=== PATIENT | male | born 1960 | race Caucasian/White ===

== ENCOUNTER 2020-03-24 10:57 | Outpatient (CLI) | payer OTHER, SELFPAY ==
--- NOTE | ~2020-03-24 | XR_ITS ---
EXAMINATION: XR shoulder LT min 2V INDICATION: Left shoulder pain TECHNIQUE: Four views of the left shoulder are submitted. COMPARISON: CT, 01/12/2019 FINDINGS: There is a chronic fracture of the mid clavicle with inferior displacement of the distal fr acture fragment. The distal fracture fragment is also overriding by approximately 8 mm. Normal alignm ent. No shoulder fracture. There is mild osteoarthritis of the acromioclavicular and glenohumeral al nts. Surgical clips are noted in the left neck. IMPRESSION: 1. No acute osseous abnormality of the shoulder. 2. Chronic displaced and overriding fracture of the left clavicle. Reviewed, dictated and finalized at location A. 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
--- NOTE | ~2020-03-24 | XR_ITS ---
EXAMINATION: XR shoulder RT min 2V DATE: 03/24/2020 11:32 INDICATION: Right shoulder pain. TECHNIQUE: 4 views of right shoulder were obtained. COMPARISON: None. FINDINGS: Bone alignment is normal. No fracture. Glenohumeral joint is normal. There is mild acromioc lavicular joint osteoarthritis. There is surgical clips in left neck. IMPRESSION: 1. Mild right acromioclavicular joint osteoarthritis. Reviewed, dictated and finalized at location A. 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
== END 2020-03-24 10:58 | disposition home or self-care (01) ==
LOC: ANHIMG 11:06
PROVIDERS: PCP Family Medicine; Visit Provider Family Medicine
DX: S42.022A Displaced fracture of shaft of left clavicle, initial encounter for closed fracture (principal); M19.011 Primary osteoarthritis, right shoulder
CPT/HCPCS: 73030

== ENCOUNTER 2020-05-05 10:30 | Outpatient (RCR) | payer OTHER, SELFPAY ==
[2020-04-26 09:23] VITALS: BP_SYST 120
--- NOTE | 2020-04-26 10:40 | PTOPEVAL ---
Thank you for referring Zachery Cameron to [facility] [place].? The patient is scheduled to be seen for therapy? 2 x/week for 6 weeks. Please review, sign, date and return this plan of care ABDON. I agree with and certify that the following plan of care is medically necessary. Referring Physician Date Admitting Provider: Attending Provider: Lawanda Jasmine Physical Therapy Evaluation. Diagnosis left clavicle fracture Onset 2 months Cause falls Additional Evaluation Detail He lives alone, performs IADL's. Pt's sister present during evaluation. She indicates pt's falls are contributed by alcohol. 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 He does not use a walker or cane at home. He is walking when he falls. He reports severe shoulder pain with limited ability to lift/carry objects. He has difficulty with ADL's due to pain. He has difficulty sleeping due to pain. He spends most of his day on the computer. He has increased shoulder pain with prolonged sitting. He performs minimal cooking task. Diagnostic Tests X-Rays For This Problem Yes Pain Assessment Self Report Pain Assessment Left Shoulder(s) Reported Pain Level 9 Pain Description Aching Pain Frequency Continuous Lowest Pain Intensity 9 Greatest Pain Intensity 10 Pain Behaviors Anxious Pain Score Pain Score 9: Self Report Upper Extremity Range of Motion Scapular/ Shoulder Range of Motion Left Shoulder Flexion - Active 80 Shoulder Flexion - Passive 128 Shoulder Extension - Active 60 Shoulder Abduction - Active 70 Shoulder Abduction - Passive 120 Shoulder Medial Rotation - Active 40 Shoulder Medial Rotation - Active L1 Query Text:Reach Behind the Back Shoulder Lateral Rotation - Active 50 Shoulder Lateral Rotation - Active back of head Query Text:Reach Behind the Head Scapular/Shoulder Range of Motion Pain Limitations Upper Extremity Muscle Strength Testing Scapular/Shoulder Left Scapular Retraction - Rhomboid 3- Fair -
--- NOTE | 2020-05-02 11:38 | PCPTNOTE ---
Patient was a no show for apt this date. Called and spoke with sister who stated he was supposed to take the bus as he did not call transportation in time. Sister was made aware of next apt. Therapist Sima Malcolm was relayed no show message as well.
--- NOTE | 2020-05-09 09:52 | PCPTNOTE ---
Patient did not show up for scheduled appointment this date. Called pt's sister who states pt spent 3 days in [facility] following incident at our facility last week. She did think he was coming for therapy today. Called his home number, left message reminding him of his next visit.
--- NOTE | 2020-05-11 09:45 | PCPTNOTE ---
Addendum entered by Jennifer Kamara, BOILER RELINER 05/11/20 12:03: Patient no show for apt this date. Per talking with PT Anjelica Malcolm, patient's apt's are to be cancelled off the schedule. Secretarial staff made aware of this change as well. Called and talked to patient's sister and let her know that all remaining apt's will be cancelled off of the schedule. Original Note: Patient no show for apt this date. Per talking with PT Anjelica Malcolm, patient's apt's are to be cancelled off the schedule. Secretarial staff made aware of this change as well.
--- NOTE | 2020-05-29 10:01 | PCPTNOTE ---
Admitting Provider: Attending Provider: Lawanda Jasmine Patient:Zachery Cameron Date of :1960 Discharge note Patient has not returned for any further treatments since 05/05/2020, therefore he will be discharged at this time. Patient?s initial visit was on 04/26/2020 09:30 and he had a total of 2 visits with 3 missed visits. The goals have been not met. Thank you for referring this patient to [facility]. Please review, sign, date and return this discharge summary ABDON. I have been updated about the patient's current status and I agree with discharge from the above service at this time. Referring Physician Date
== END 2020-05-30 08:11 | disposition home or self-care (01) ==
LOC: ANHPT 10:30
PROVIDERS: PCP Family Medicine
DX: S42.002D Fracture of unspecified part of left clavicle, subsequent encounter for fracture with routine healing (principal); S46.812D Strain of other muscles, fascia and tendons at shoulder and upper arm level, left arm, subsequent encounter
CPT/HCPCS: 97110; 97162

== ENCOUNTER 2020-05-05 10:58 | Emergency (ER) | payer OTHER, SELFPAY ==
[2020-05-05] VITALS (12 sets, daily range): BP systolic 98–137; BP diastolic 61–82; PULSE 63–78; RESP 13–26; TEMP 36.7; O2SAT 95–100
--- NOTE | ~2020-05-05 | CT_ITS ---
EXAMINATION: CT brain wo con DATE: 05/05/2020 11:37 INDICATION: Syncope TECHNIQUE: Computed tomography (CT) of the head was performed without intravenous contrast. Sagittal and coronal reconstructions were performed. The mA was adjusted according to patient size. Iterative reconstruction technique was employed. The dose-length product was 605.33 mGy-cm. COMPARISON: None FINDINGS: No fracture. Extra-axial lenticular hematoma overlying the left frontal lobe which measures approxima tely 7.3 cm AP, 4.8 cm craniocaudally and up to 1.4 cm in maximal thickness. The hematoma appears bárbara nded anteriorly by the scar of the coronal suture and there is thin linear calcification along what i s likely elevated dura and would favor epidural versus subdural hematoma. No other intracranial hemor rhage. The hematoma results in mild mass effect upon the immediately underlying gyri but no midline s hift in the basal cisterns remain patent. Symmetric prominence of the sulci and ventricles consistent with moderate diffuse cerebral volume loss which is disproportionate for age. Small old lacunar infa rct extending from the head of the right caudate nucleus across anterior limb of the internal capsule to the lentiform nucleus. Additional small region of encephalitis along the inferior anterior right frontal lobe which could represent sequela of prior infarct or trauma. No acute infarction. No intra -axial mass. Intracranial calcified cerebral atherosclerosis is noted. The orbits, paranasal sinuses and mastoid air cells are normal. IMPRESSION: 1. 7.3 x 4.8 x 1.4 cm epidural hematoma overlying the left frontal lobe. No associated midline shift which is likely due to the moderate underlying diffuse cerebral volume loss which is disproportionate for age and of indeterminate etiology. Dr. Dove discussed these findings with Dr. Tatum at 11: 40 AM. 2. 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 2. Small region of encephalomalacia along the inferior anterior right frontal lobe which could repres ent sequela of additional old infarct or chronic trauma. Reviewed, dictated and finalized at location A. IMPRESSION: 1. 7.3 x 4.8 x 1.4 cm epidural hematoma overlying the left frontal lobe. No ass ociated midline shift which is likely due to the moderate underlying diffuse ce rebral volume loss which is disproportionate for age and of indeterminate etiol ogy. Dr. Dove discussed these findings with Dr. Tatum at 11:40 AM. 2. Old lacunar infarct involving the head of the right caudate nucleus, anterio r limb of the internal capsule and lentiform nucleus. 2. Small region of encephalomalacia along the inferior anterior right frontal l obe which could represent sequela of additional old infarct or chronic trauma.
--- NOTE | ~2020-05-05 | XR_ITS ---
EXAMINATION: XR chest 1V portable DATE: 05/05/2020 11:56 INDICATION: Syncope post fall TECHNIQUE: frontal view of the chest was obtained. COMPARISON: None FINDINGS: Elevation of the left hemidiaphragm with streaky atelectasis at the left lung base. Additional mild s treak atelectasis at the right costophrenic angle. No other airspace opacities, pulmonary edema, pleu ral effusion or pneumothorax. The cardiomediastinal silhouette is normal. Chronic nonunited mid diaph yseal fracture of the left clavicle with 2 shaft widths cephalad displacement of the medial fragment. Postoperative changes with multiple surgical clips at the left base of the neck. IMPRESSION: 1. Elevation of the left hemidiaphragm with bibasilar atelectasis, left greater than right. Reviewed, dictated and finalized at location A.
--- NOTE | 2020-05-05 11:12 | ECG_ITS ---
Measurements Intervals Donna Rate: 54 P: 66 GA: 135 QRS: 45 QRSD: 93 T: 56 QT: 474 QTc: 453 Interpretive Statements SINUS BRADYCARDIA WITH SINUS ARRHYTHMIA BASELINE ARTIFACT- I, II, AVR, AVL, AVF, V1-V6 BORDERLINE ECG Electronically Signed On 05-05-2020 11:32:18 CDT by Johny Oneil D.O.
--- NOTE | 2020-05-05 11:16 | ED.GENADULT ---
HPI - General Adult General Chief complaint: Syncope Stated complaint: Syncopal Source: RN notes reviewed History of Present Illness HPI narrative: Patient presents to emergency department via EMS for syncopal episode. Patient was at rehab for his shoulder today when he had 2 syncopal episodes. Per EMS the patient had another episode of becoming bradycardic in route with a brief syncopal episode patient currently denies any symptoms he denies any fevers or chills chest pain shortness of breath abdominal pain nausea vomit diarrhea or any other symptoms. He states that he does drink alcohol daily with last drink last night he denies any recent illness Related Data Home Medications Medication Instructions Recorded Confirmed No Home Medications 05/05/20 05/05/20 Allergies Allergy/AdvReac Type Severity Reaction Status Date / Time No Known Allergies Allergy Unverified 02/24/12 13:29 Review of Systems Review of Systems: Narrative: Gen.: Denies fevers or chills Eyes: Denies eye pain or visual change ENT: Denies congestion Respiratory: Denies shortness of breath or cough CV: See HPI GI: Denies abdominal pain nausea, emesis or diarrhea Musculoskeletal: Denies back pain or muscle pain Neuro: Denies numbness, tingling, weakness or focal weakness Skin: Denies rash Except as documented, all other systems reviewed and negative [facility] Past Medical History Medical History (Updated 05/05/20 @ 12:43 by Jorge Tatum DO) Patient denies significant medical history Social History Social History (Updated 05/05/20 @ 11:21 by Jorge Tatum DO) Smoking status: Current every day smoker Alcohol intake: current Exam Narrative: Exam Narrative: APPEARANCE: No acute distress, nontoxic, resting in bed EYES: EOMI HEENT: Normocephalic, atraumatic, OMM RESPIRATORY: No respiratory distress Clear to auscultation bilaterally with no rhonchi wheezing or rales. CARDIOVASCULAR: Regular rate and rhythm without murmurs rubs or gallops. ABDOMINAL: Soft, nontender, nondistended, no rebound or guarding MUSCULOSKELETAl: Moves all extremities. No clubbing, cyanosis or edema. NEURO: Awake and alert x 4. Following commands, speech normal, no focal deficits SKIN:: Warm, dry. No rashes lesions or abrasions PSYCHIATRIC: Normal affect/mood, Course Course Emergency Course: Patient is awake and alert x4 he states that he is a DNR does not wish any resuscitative efforts if needed Patient did have a brief episode of bradycardia down into the 30s in the ED in which she went unresponsive approximately 30 seconds and resolved on its own As the patient, she drinks he states that he drinks as much as he can on a daily basis until he passes out I asked the patient about any recent falls and he states he falls all the time Discussed with patient need for transfer request [facility] at this time Discussed with MARY KAY Chand for neurosurgery presentation work-up recommends transfer to the ED. I discussed with in the ED who accepts transfer Patient is remained on nuclear monitoring technician no further episodes of bradycardia or syncope in ED Vital Signs Vital signs: Vital Signs Temperature 98.0 F 05/05/20 11:03 Pulse Rate 69 05/05/20 11:03 Respiratory Rate 18 05/05/20 11:03 Blood Pressure 98/69 L 05/05/20 11:03 Pulse Oximetry 100 05/05/20 11:03 Temperature 98.0 F 05/05/20 11:03 Pulse Rate 76 05/05/20 12:16 Respiratory Rate 19 05/05/20 12:16 Blood Pressure 117/61 05/05/20 12:16 Pulse Oximetry 97 05/05/20 11:46 Medical Decision Making Vital Signs Vital Signs: Vital Signs Temperature 98.0 F 05/05/20 11:03 Pulse Rate 69 05/05/20 11:03 Respiratory Rate 18 05/05/20 11:03 Blood Pressure 98/69 L 05/05/20 11:03 Pulse Oximetry 100 05/05/20 11:03 Temperature 98.0 F 05/05/20 11:03 Pulse Rate 76 05/05/20 12:16 Respiratory Rate 19 05/05/20 12:16 Blood Pressure 117/61 05/05/20 12:16 Pulse Ox
[2020-05-05] MEDS: SODIUM CHLORIDE 0.9% IV 1,000 ML 999 ML IV CONT (11:24)
[2020-05-05 11:34] LABS: Basophils Absolute Auto 0.1 K/mm3 (0.0-0.1); Basophils Percent Auto 1.1 % (0.2-1.2); Eosinophils Absolute Auto 0.1 K/mm3 (0-0.3); Eosinophils Percent Auto 1.7 % (0-4.4); Hematocrit 40.9 % (42.0-52.0); Hemoglobin 14.4 g/dL (14.0-18.0); Immature Granulocyte Absolute 0.08 K/mm3 (0.00-0.031); Immature Granulocyte Percent A 1.1 % (0-0.5); Lymphocytes Absolute Auto 2.35 K/mm3 (0.9-3.2); Lymphocytes Percent Auto 32.4 % (18.3-44.2); Mean Corpuscular HGB Conc 35.2 g/dl (32-36); Mean Corpuscular Hemoglobin 34.2 pg (26-34); Mean Corpuscular Volume 97.1 fl (80-100); Monocytes Absolute Auto 1.1 K/mm3 (0.1-0.6); Neutrophils Absolute Auto 3.5 K/mm3 (1.3-6.7); Neutrophils Percent Auto 48.7 % (45.5-73.1); Platelet Count Result 173 k/mm3 (150-375); Red Blood Count 4.21 M/mm3 (4.6-6.20); Red Cell Distribution Width 12.3 % (11.5-14.5); White Blood Count 7.3 K/mm3 (4.5-10.0)
[2020-05-05 11:46] LABS: INR 0.9; Prothrombin Time 13.1 Seconds (11.1-14.7)
[2020-05-05 11:47] LABS: Partial Thromboplastin Time 28.2 SECONDS (22.3-36.8)
[2020-05-05 11:48] LABS: Ethanol 132 mg/dL (<10); Lipase 126 U/L (23-300)
[2020-05-05 11:49] LABS: Alanine Aminotransferase 46 U/L (4-50); Albumin Level 3.8 g/dL (3.5-5.1); Alkaline Phosphatase 51 U/L (38-126); Anion Gap 8 mmol/L (8-16); Aspartate Amino Transferase 57 U/L (17-59); Bilirubin,Total 0.3 mg/dL (0.2-1.3); Blood Urea Nitrogen 11 mg/dL (9-20); Calcium 9.2 mg/dL (8.4-10.2); Carbon Dioxide 27 mmol/L (22-30); Chloride 101 mmol/L (98-107); Estimated CRCL calculation 62 ml/min; Estimated Glomerular Filt Rate > 60; Glucose 92 mg/dL (75-110); Magnesium 1.6 mg/dL (1.6-2.3); Potassium 3.6 mmol/L (3.4-5.0); Sodium 136 mmol/L (137-145)
[2020-05-05 12:01] LABS: Troponin I < 0.012 ng/mL (0.000-0.034)
== END 2020-05-05 13:02 | disposition short-term general hospital (02) ==
PROVIDERS: Emergency Provider Emergency Medicine; PCP Family Medicine
DX: S06.4X9A Epidural hemorrhage with loss of consciousness of unspecified duration, initial encounter (principal); R55 Syncope and collapse; F10.129 Alcohol abuse with intoxication, unspecified; Y90.6 Blood alcohol level of 120-199 mg/100 ml; F17.200 Nicotine dependence, unspecified, uncomplicated; R91.8 Other nonspecific abnormal finding of lung field; R00.1 Bradycardia, unspecified; Z66 Do not resuscitate; W18.39XA Other fall on same level, initial encounter
CPT/HCPCS: 36415; 70450; 71045; 80053; 80307; 83690; 83735; 84484; 85025; 85610; 85730; 93005; 96360; 97110; 99285; J7030

== ENCOUNTER 2020-05-23 14:08 | Observation (INO) | payer OTHER, SELFPAY ==
[2020-05-23] VITALS (11 sets, daily range): BP systolic 79–160; BP diastolic 56–99; PULSE 52–93; RESP 15–25; TEMP 36.2–37.1; O2SAT 98–100; BMI 22.3
--- NOTE | ~2020-05-23 | XR_ITS ---
EXAMINATION: XR chest 2V EXAM DATE: 05/23/2020 14:57 INDICATION: Syncope, back pain. Recent left clavicular fracture. TECHNIQUE: Frontal and lateral projections of the chest obtained and reviewed. Comparison is made to prior examination from 05/05/2020. Correlation was made with left shoulder x-ray 03/24/2020. FINDINGS: Completely inferiorly displaced left midclavicular fracture. No solid bone bridging; this i s at risk for nonunion. Left hemidiaphragm elevation, possible paralysis. This is unchanged compared to prior study. There is some adjacent atelectasis. The lungs are otherwise clear. Cardiomediastinal silhouette is normal. There is no pneumothorax suspected. There are no pleural effusions. IMPRESSION: 1. Left midclavicular fracture with inferior displacement, at risk for nonunion. 2. Left hemidiaphragm elevation, possible paralysis. Could be diagnosed with a follow-up nonemergen t sniff test if patient is symptomatic. Reviewed, dictated and finalized at location A. IMPRESSION: 1. Left midclavicular fracture with inferior displacement, at risk for nonunio n. 2. Left hemidiaphragm elevation, possible paralysis. Could be diagnosed with a follow-up nonemergent sniff test if patient is symptomatic.
--- NOTE | ~2020-05-23 | CT_ITS ---
EXAMINATION: CT brain wo con DATE: 05/23/2020 15:45 INDICATION: Syncope. TECHNIQUE: Computed tomography (CT) of the head was performed without intravenous contrast. The mA wa s adjusted according to patient size. Iterative reconstruction technique was employed. The dose-lengt h product was 681.00 mGy-cm. COMPARISON: Head CT 05/05/2020 FINDINGS: There is old infarct involving the right basal ganglia and anterior limb right internal cap omar. There is a hyperdense extra-axial fluid collection overlying the left frontoparietal region wit h maximum thickness of 15 mm. There is chronic encephalomalacia in inferior right frontal lobe. There is no acute ischemic infarct or abnormal mass lesion. There are scattered areas of low attenuation i n the cerebral white matter, which is within normal limits for the patient's age. The ventricles are normal in size. There is mild mucosal thickening in the paranasal sinuses. The mastoid air cells are normal. IMPRESSION: 1. Unchanged extra-axial hematoma overlying left frontoparietal region with maximum thickness of 15 m m, which may be epidural or subdural. 2. 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 3. Chronic encephalomalacia involving inferior right frontal lobe, which may be an old infarct or res ult of traumatic brain injury. Reviewed, dictated and finalized at location A. IMPRESSION: 1. Unchanged extra-axial hematoma overlying left frontoparietal region with max imum thickness of 15 mm, which may be epidural or subdural. 2. 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 3. Chronic encephalomalacia involving inferior right frontal lobe, which may be an old infarct or result of traumatic brain injury.
--- NOTE | ~2020-05-23 | US_ITS ---
EXAMINATION: US carotid duplex BI EXAM DATE: 05/24/2020 08:28 INDICATION: Syncope. TECHNIQUE: Grayscale, color and pulsed Doppler images of the cervical carotid arteries were obtained . The degree of vessel stenosis is placed in one of the following categories: normal, <50% stenosis, 50-69% stenosis, >=70% stenosis but less than near-occlusion, near-occlusion, or occlusion. Note that percent stenosis relative to normal distal artery lumen diameter is indirectly measured from velocit y measurements as described by Aston, et al. Radiology 2003; 229:340-346. There is no prior study fo r comparison. FINDINGS: RIGHT SIDE: Right common carotid artery peak systolic velocity (PSV in cm/s): 66 Right bulb/internal carotid artery peak systolic velocity (PSV in cm/s): 44 Right internal carotid artery end diastolic velocity (EDV in cm/s): 12 Right ICA/CCA peak systolic ratio: 0.7 Right external carotid artery peak systolic velocity (PSV in cm/s): 139 Right vertebral artery antegrade flow: yes There is mild carotid bulb plaque. Velocity and Doppler waveforms in the common and internal carotid arteries is normal. LEFT SIDE: Left common carotid artery peak systolic velocity (PSV in cm/s): 91 Left bulb/internal carotid artery peak systolic velocity (PSV in cm/s): 53 Left internal carotid artery end diastolic velocity (EDV in cm/s): 12 Left ICA/CCA peak systolic ratio: 0.6 Left external carotid artery peak systolic velocity (PSV in cm/s): 135 Left vertebral artery antegrade flow: yes There is mild carotid bulb plaque. Velocity and Doppler waveforms in the common and internal carotid arteries is normal. IMPRESSION: 1. Less than 50 percent stenosis in the right internal carotid artery. 2. Less than 50 percent stenosis in the left internal carotid artery. Reviewed, dictated and finalized at location A.
--- NOTE | 2020-05-23 14:26 | ECG_ITS ---
Measurements Intervals [place] Rate: 84 P: 55 LA: 112 QRS: 50 QRSD: 88 T: 64 QT: 385 QTc: 456 Interpretive Statements SINUS RHYTHM WITH SHORT LA INTERVAL BORDERLINE ECG Electronically Signed On 05-24-2020 8:22:43 CDT by Johny Oneil D.O.
--- NOTE | 2020-05-23 15:05 | ED.SYNCOPE ---
HPI - Syncope General Chief Complaint: Syncope Stated Complaint: syncopal Time Seen by Provider: 05/23/20 14:14 History of Present Illness HPI narrative: Patient is a 59-year-old male who presents ER with near syncope. Reports he is going to the store to get some bread and some eggs and he got really lightheaded and things started to go black. He had to go down onto 1 knee. He did not have full loss of consciousness. Denies having this happen to him before. Patient has a bunch of other vague symptoms such as chest pain and fevers that he cannot give details to in terms of quality, frequency, or when the symptoms actually occurred. Related Data Home Medications Medication Instructions Recorded Confirmed ergocalciferol (vitamin D2) 50,000 unit PO WEEKLY 05/23/20 05/23/20 folic acid 1 mg PO DAILY 05/23/20 05/23/20 Allergies Allergy/AdvReac Type Severity Reaction Status Date / Time No Known Allergies Allergy Unverified 02/24/12 13:29 Review of Systems Review of Systems: All systems reviewed & are unremarkable except as noted in HPI and below Constitutional: Constitutional: Denies chills, Reports fever(s) and Denies weakness ENT: Denies nasal congestion and Denies sore throat Cardiovascular: Cardiovascular: Reports chest pain, Denies rapid heart rate and Denies radiating jaw, neck or arm pain Respiratory: Respiratory: Denies cough, Denies dyspnea and Denies wheezing Gastrointestinal: Gastrointestinal: Denies abdominal pain, Denies diarrhea, Denies nausea and Denies vomiting Neurologic: Denies confusion, Reports dizziness, Reports syncope (near), Denies focal weakness and Denies numbness PMFSH Past Medical History Medical History (Updated 05/23/20 @ 21:23 by Earl Roberson MD) Patient denies significant medical history Social History Social History (Updated 05/05/20 @ 11:21 by Jorge Tatum DO) Smoking packs per day: 0.5 Smoking cigarettes per day: 10.0 Smoking status: Current every day smoker Tobacco type: cigarettes Second hand tobacco smoke exposure: Yes Alcohol intake: current Drinks per week: 84 Substance use: unknown Spiritual care concerns: No Exam Narrative: Exam Narrative: GENERAL: Unkempt-appearing, well-nourished, and in no acute distress. HEAD: Normocephalic, atraumatic. EYES: PERRL and EOMI. ENT: Mucous membranes moist. CHEST: Clear to auscultation. No respiratory distress. HEART: Regular rate and rhythm. Normal peripheral pulses. ABDOMEN: Soft, nontender, nondistended EXTREMITIES: Normal range of motion. No edema. SKIN: Warm, dry, no rash. NEURO: Alert and oriented x3. Course Reevaluation(s) Reevaluation #1: Discussed with patient the fact that is here couple weeks ago with a epidural hematoma and transferred to [facility] for similar symptoms. Reports he required no intervention at that time and was low at home. He does not seem to know much else about his stay there. He reports no I talked to him about possible need for pacemaker. Date: 05/23/20 Time: 16:25 Reevaluation #2: Discussed with Dr. Gonzales who would recommend admission for observation. Date: 05/23/20 Time: 17:13 Vital Signs Vital signs: Vital Signs Temperature 98.8 F 05/23/20 14:10 Pulse Rate 90 05/23/20 14:10 Respiratory Rate 25 H 05/23/20 14:10 Blood Pressure 79/56 L 05/23/20 14:10 Pulse Oximetry 100 05/23/20 14:10 Temperature 97.8 F 05/23/20 20:00 Pulse Rate 83 05/23/20 20:22 Respiratory Rate 18 05/23/20 20:01 Blood Pressure 160/92 H 05/23/20 20:01 Pulse Oximetry 98 05/23/20 20:01 MDM - Syncope Lab Data Result diagrams: 05/23/20 15:23 05/23/20 15:23 Labs: Lab Results 05/23/20 05/23/20 05/23/20 Range/Units 15:23 15:23 15:23 WBC 6.1 (4.5-10.0) K/mm3 RBC 4.57 L (4.6-6.20) M/mm3 Hgb 15.5 (14.0-18.0) g/dL Hct 44.1 (42.0-52.0) % MCV 96.5 (80-100) fl MCH 33.9 (26-34) p
[2020-05-23 15:38] LABS: Basophils Percent Auto 0.7 % (0.2-1.2); Eosinophils Absolute Auto 0.1 K/mm3 (0-0.3); Eosinophils Percent Auto 0.8 % (0-4.4); Hematocrit 44.1 % (42.0-52.0); Hemoglobin 15.5 g/dL (14.0-18.0); Immature Granulocyte Absolute 0.03 K/mm3 (0.00-0.031); Immature Granulocyte Percent A 0.5 % (0-0.5); Lymphocytes Absolute Auto 0.89 K/mm3 (0.9-3.2); Lymphocytes Percent Auto 14.5 % (18.3-44.2); Mean Corpuscular HGB Conc 35.1 g/dl (32-36); Mean Corpuscular Hemoglobin 33.9 pg (26-34); Mean Corpuscular Volume 96.5 fl (80-100); Mean Platelet Volume 11.5 fl (7.4-10.4); Monocytes Absolute Auto 0.6 K/mm3 (0.1-0.6); Monocytes Percent Auto 9.8 % (2.6-8.5); Neutrophils Absolute Auto 4.5 K/mm3 (1.3-6.7); Neutrophils Percent Auto 73.7 % (45.5-73.1); Platelet Count Result 112 k/mm3 (150-375); Red Blood Count 4.57 M/mm3 (4.6-6.20); Red Cell Distribution Width 12.3 % (11.5-14.5); White Blood Count 6.1 K/mm3 (4.5-10.0)
[2020-05-23 15:44] LABS: Lactic Acid Reflex 1.7 mmol/L (0.7-2.1)
[2020-05-23 15:48] LABS: Anion Gap 5 mmol/L (8-16); Blood Urea Nitrogen 14 mg/dL (9-20); Calcium 7.7 mg/dL (8.4-10.2); Carbon Dioxide 27 mmol/L (22-30); Chloride 104 mmol/L (98-107); Estimated Glomerular Filt Rate > 60; Glucose 97 mg/dL (75-110); Potassium 3.5 mmol/L (3.4-5.0); Sodium 136 mmol/L (137-145)
[2020-05-23 15:58] LABS: Troponin I < 0.012 ng/mL (0.000-0.034)
--- NOTE | 2020-05-23 16:37 | PC.NURSE ---
md bullock states hold iv fluids at this time.
[2020-05-23 17:15] LABS: Ethanol < 10 mg/dL (<10)
[2020-05-23 17:16] LABS: Partial Thromboplastin Time 26.7 SECONDS (22.3-36.8); Prothrombin Time 13.4 Seconds (11.1-14.7)
--- NOTE | 2020-05-23 17:47 | PC.NURSE ---
called suleman mcdowell, added on MG [id number]
--- NOTE | 2020-05-23 17:52 | PC.NURSE ---
sister taran called per pt request. sister informed of pt status in ed
[2020-05-23 17:58] LABS: Magnesium 1.7 mg/dL (1.6-2.3)
--- NOTE | 2020-05-23 20:35 | ADMGEN ---
This patient, Zachery Cameron, was admitted to [facility]. Patient/family oriented to hospital policies and general routines including ID bracelet, bed and alarms, visiting hours, pain management, procedures, bathroom and other care routines, personal items, smoking policy, room service/diet, and visiting hours. Information on how to activate the Rapid Response Team has been discussed. Patient/Family are encouraged to report perceived risks to care and to ask questions if they do not understand what they are told or what they should do.
--- NOTE | 2020-05-23 21:53 | PM.IMHP ---
H&P: HPI History of Present Illness Date/Time: 05/23/20 21:53 male patient who reportedly had a syncopal episode on 05/05/2020. However the patient told me that it was due to mechanical fall. He stated he had been drinking at that time. The patient was at rehab for his shoulder when he had 2 up syncopal episode. Patient became bradycardic EN route for brief episode. The patient had a brief episode of bradycardia down in the 30s and the patient went unresponsive for about 30 seconds and then resolved on its own. It was suggested that the patient be transferred to u at that time due to a head CT that was read as 7.3 x 4.8 x 1.4 cm epidural hematoma overlying the left frontal lobe. No so stated midline shift. The patient stated that he had been on seizure medicine shortly after this episode but no longer takes any seizure medicine. The patient stated he was supposed to follow-up and have a repeat head CT in the near future. Today the patient walk approximately 4 blocks to a small grocery store fresh market to get some Pred and some headaches. The patient had not eaten all morning. The patient stated that he typically after walking 4 blocks he usually takes a break and sits down for minute. However she stated that he did not take her break today and that he became short of breath and felt dizzy and he leans his head on the counter he stated that things started to go black and he went down on 1 knee. He did not lose consciousness. Patient also had some mild chest discomfort during this. Had no fever chills. Patient is a chronic alcoholic drinker him drinks about a 12 pack a day. Patient drink earlier this morning. The patient does not have any hand tremors at this time. The patient stated that he is a DNR. He was listed as a DNR on his last visit as well. Cardiology has been consulted for symptomatic bradycardia and old infarction was noted as well. The patient was supposed to follow-up for a repeat head CT since his release from u. The patient has not been having any focal weakness or slurred speech. Patient does not have any complaints of chest pain or shortness of breath at this time. The patient is being admitted to observation on the date of service of 05/23/2020 Chief Complaint: Syncopal episode with bradycardia Review of Systems Review of Systems: All systems reviewed & are unremarkable except as noted in HPI and below Constitutional: Constitutional: Reports as per HPI and Reports no additional constitutional complaints Eyes: Eyes: Reports as per HPI and Reports no additional eye complaints ENT: Reports system reviewed and no additional complaints, except as documented and Reports Normal hearing present Cardiovascular: Cardiovascular: Reports no additional cardiovascular complaints Respiratory: Respiratory: Reports no additional respiratory complaints and Reports no additional respiratory complaints Gastrointestinal: Gastrointestinal: Reports as per HPI and Reports no additional gastrointestinal complaints Musculoskeletal: Musculoskeletal: Reports no additional musculoskeletal complaints Integumentary/Breasts: Skin/Breast: Reports system reviewed and no additional complaints, except as docu and Reports as per HPI Neurologic: Reports system reviewed and no additional complaints, except as documented, Reports as per HPI and Reports Normal hearing present Psychiatric: Psychiatric: Reports no additional psychiatric complaints and Reports as per HPI Endocrine: Endocrine: Reports no additional endocrine complaints Hematologic/Lymphatic: Hematologic/Lymphatic: Reports no additional hematologic/lymphatic complaints Allergic/Immunologic: Allergic/Immunologic: Reports no additional allergic/immunologic complaints [facility] Past Medical History Medical History (Updated 05/23/20 @ 22:05 by Karla Cook NP) Alcoholism Patient denies significant medical history Tobacco abuse Surgical History Surgical History (Updated 05/23/20
[2020-05-23] MEDS: chlordiazePOXIDE (*CRX) 25 MG CAPSULE PO (22:21)
[2020-05-24] VITALS (11 sets, daily range): BP systolic 112–169; BP diastolic 75–95; PULSE 61–90; RESP 16–20; TEMP 35.8–36.6; O2SAT 98–100
--- NOTE | 2020-05-24 | ECHO_ITS ---
Patient Info Name: Zachery Cameron Age: 59 years : 1960 Gender: Male Ht: 67 in Wt: 142 lbs BSA: 1.75 m2 HR: 81 bpm BP: 169 / 95 mmHg Heart Rhythm: Sinus Rhythm Exam Date: 05/24/2020 9:26 AM Exam Location: [facility] Patient Status: Outpatient Admit Date: 05/23/2020 Staff Ordering Physician: Karla Cook NP Special Tester: Andrew De León RDCS, RT Attending Provider: Arin Salas PA-C Referring Physician: Joyce WHEAT; Exam Type: CA echo doppler color flow Study Info Indications R55 - Syncope and collapse Complete two-dimensional, color flow and Doppler transthoracic echocardiogram is performed. Strain analysis performed. Summary 1. Complete two-dimensional, color flow and Doppler transthoracic echocardiogram is performed. 2. Left ventricular chamber size, wall thickness and systolic function are normal with no regional wall motion abnormalities with an estimated ejection fraction of 55-60 %. Grade 2 diastolic dysfunction is present. The global longitudinal strain is mildly diminished at -16% consistent with a degree of systolic dysfunction. 3. Right ventricular chamber dimension is mildly enlarged with normal systolic function. 4. No significant valve disease. 5. Normal sinus rhythm. Left Ventricle Left ventricular chamber dimension is normal. Left ventricular systolic function is normal, estimated at 55-60%. There is no increased left ventricular wall thickness. Left ventricular septal wall motion is normal. The left ventricular diastolic function is grade II diastolic dysfunction. Global longitudinal strain is mildly elevated at -16 %. Left ventricular chamber size, wall thickness and systolic function are normal with no regional wall motion abnormalities with an estimated ejection fraction of 55-60 %. Grade 2 diastolic dysfunction is present. The global longitudinal strain is mildly diminished at -16% consistent with a degree of systolic dysfunction. Right Ventricle Right ventricular chamber dimension is mildly enlarged with normal systolic function. Right ventricular systolic function is normal. Left Atria Left atrial chamber dimension is normal. Right Atria Right atrial chamber dimension is normal. Aortic Valve The aortic valve is trileaflet. There is mild aortic valve sclerosis. There is no aortic valve stenosis. There is no aortic valve regurgitation. Pulmonic Valve The pulmonic valve is normal. There is no pulmonic valve stenosis. There is no pulmonic regurgitation. Mitral Valve The mitral valve has normal leaflets. There is no mitral valve stenosis. There is no mitral valve regurgitation. Tricuspid Valve The tricuspid valve leaflets are normal. There is no significant tricuspid valve stenosis. There is trace tricuspid valve regurgitation. No pulmonary hypertension, estimated pulmonary arterial systolic pressure is Empty. Pericardium/Pleural The pericardium appears normal. There is no pericardial effusion. Inferior Vena Cava Normal inferior vena cava with >50% collapse upon inspiration consistent with Empty right atrial pressure, 5 mmHg. Aorta The aortic root size at the sinus of Valsalva is normal. The prox ascending aorta size is normal. Left Ventricular Outflow Tract Name Value Normal LVOT 2D --
[2020-05-24 05:45] LABS: Basophils Absolute Auto 0.1 K/mm3 (0.0-0.1); Basophils Percent Auto 1.1 % (0.2-1.2); Eosinophils Absolute Auto 0.1 K/mm3 (0-0.3); Eosinophils Percent Auto 1.9 % (0-4.4); Hematocrit 44.7 % (42.0-52.0); Hemoglobin 15.7 g/dL (14.0-18.0); Immature Granulocyte Absolute 0.02 K/mm3 (0.00-0.031); Immature Granulocyte Percent A 0.4 % (0-0.5); Lymphocytes Absolute Auto 1.49 K/mm3 (0.9-3.2); Lymphocytes Percent Auto 26.1 % (18.3-44.2); Mean Corpuscular HGB Conc 35.1 g/dl (32-36); Mean Corpuscular Volume 96.8 fl (80-100); Mean Platelet Volume 10.6 fl (7.4-10.4); Monocytes Absolute Auto 0.7 K/mm3 (0.1-0.6); Monocytes Percent Auto 11.7 % (2.6-8.5); Neutrophils Absolute Auto 3.4 K/mm3 (1.3-6.7); Neutrophils Percent Auto 58.8 % (45.5-73.1); Platelet Count Result 112 k/mm3 (150-375); Red Blood Count 4.62 M/mm3 (4.6-6.20); Red Cell Distribution Width 12.1 % (11.5-14.5); White Blood Count 5.7 K/mm3 (4.5-10.0)
[2020-05-24] MEDS: chlordiazePOXIDE (*CRX) 25 MG CAPSULE PO ×2 (05:49→17:36)
[2020-05-24] MEDS: HYDROcodone/acetaminophen (*CRX) 5-325 MG TABLET 1 TAB PO (05:49)
[2020-05-24 05:52] LABS: Alanine Aminotransferase 22 U/L (4-50); Albumin Level 3.8 g/dL (3.5-5.1); Alkaline Phosphatase 53 U/L (38-126); Anion Gap 5 mmol/L (8-16); Aspartate Amino Transferase 32 U/L (17-59); Bilirubin,Total 0.7 mg/dL (0.2-1.3); Blood Urea Nitrogen 14 mg/dL (9-20); Calcium 9.3 mg/dL (8.4-10.2); Carbon Dioxide 28 mmol/L (22-30); Chloride 103 mmol/L (98-107); Estimated CRCL calculation 87 ml/min; Estimated Glomerular Filt Rate > 60; Glucose 98 mg/dL (75-110); Lactate Dehydrogenase 314 U/L (313-618); Lipase 47 U/L (23-300); Magnesium 1.6 mg/dL (1.6-2.3); Potassium 3.7 mmol/L (3.4-5.0); Sodium 136 mmol/L (137-145)
--- NOTE | 2020-05-24 08:10 | PC.NURSE ---
DOWN VIA STRETCHER FOR US OF CAROTIDS.
--- NOTE | 2020-05-24 08:40 | PC.NURSE ---
RETURNS TO ROOM LIBRARY ASSOCIATE 5 FROM US CAROTIDS. OT HERE TO SEE PT.
--- NOTE | 2020-05-24 09:20 | PC.NURSE ---
ECHO IN PROGRESS AT BEDSIDE.
--- NOTE | 2020-05-24 10:34 | PM.CNCAR ---
Assessment and Plan Assessment and plan (1) Syncope: Code(s): R55 - Syncope and collapse Status: Acute Assessment and Plan: Patient has had recurrent falls, syncope and near-syncope which can be from several etiologies. He has intermittent bradycardia. He was also somewhat hypotensive when he was in the ER briefly. This may be due to his alcohol abuse as well. Seizures are unlikely, though he also has had some head injuries. I explained to Mr. Cameron that if we could do further monitoring to see if he is having extremely slow heartbeats and if they correlate with his falls and blackouts. A pacemaker would be helpful if he has symptomatic bradycardia in preventing further falls or blackouts and subsequent injuries. He is not sure that he wants to proceed with long-term home monitoring, and not sure if he would want to have a pacemaker put in. (An implanted loop recorder is an option, but a monitor is prefered.) (2) Bradycardia: Code(s): R00.1 - Bradycardia, unspecified Status: Acute Assessment and Plan: Intermittent bradycardia noted. None since he has been in the [facility]. (3) Alcoholism: Code(s): F10.20 - Alcohol dependence, uncomplicated Status: Chronic Assessment and Plan: Long history of heavy alcohol abuse Trouble with compliance and follow-up. Sister Sherita hopes he will go into assisted living. (4) Tobacco abuse: Code(s): Z72.0 - Tobacco use Status: Chronic Assessment and Plan: Ongoing smoking with a history of tonsillar cancer; did not follow-up for his radiation and chemotherapy but no obvious recurrence this admission. History of Present Illness History of Present Illness Consult date/time: 05/24/20 10:34 Requesting physician: Karla Cook NP Consult reason: Other (Syncope) Reason For Visit: syncope, bradycardia Narrative: Date of service: 05/24/2020 Zachery Cameron this 59-year-old male I was asked to see at the request of hospitalist for my advice and opinion regarding syncope, bradycardia and chest discomfort in consultation. Apparently a couple of brief syncopal episodes on 05/05/2020 his heart rate dropped into the 30s when he was in the ED for about 30 seconds and was unresponsive. For large epidural hematoma of the right frontal lobe and he was transferred in outside hospital. He was treated and discharged with outpatient follow-up scheduled for the hematoma with a repeat CT scan. Yesterday while buying groceries the patient got lightheaded and thing started to go black, and he sank to 1 knee. Apparently there was not full loss of consciousness, but that is not completely clear. When EMS arrived his pulse is 42 and blood pressure 102/68.. He has some other vague complaints the right chest (tender). He has had some TREJO as well.. In the emergency room blood pressure was initially 79/56 and pulse 90, but Heart rate was noted to be in the 50s at times. He was admitted to the chest Pain Center for evaluation. He has had no further bradycardia or hypotension, no orthostasis, and negative troponins. The patient has history of severe alcoholism. History obtained from his sister Bindu, who said that even though he does not appear able to take care of himself very well, she does not want min her house because he is ?always drunk.? He has a long history of frequent falls. Patient says he falls and he has blackouts, can't tell me much history about this, if there is a prodrome etc. Bindu is hoping that he may go to assisted living since she does not feel comfortable with him living alone. Review of Systems Constitutional: Constitutional: Reports fatigue, Reports lethargy and Reports weakness Eyes: Eyes: Reports no additional eye complaints ENT: Denies epistaxis Cardiovascular: Ca
[2020-05-24] MEDS: FOLIC ACID 1 MG TABLET PO (10:36)
[2020-05-24] MEDS: NICOTINE (*PBKC) 14 MG PATCH 1 PATCH TRANSDERM (10:37)
[2020-05-24] MEDS: MAGNESIUM OXIDE 400 MG TABLET PO (10:37)
[2020-05-24] MEDS: THIAMINE HCL 100 MG TABLET PO (10:37)
--- NOTE | 2020-05-24 10:55 | PC.NURSE ---
DR. AYALA HERE TO SEE PT AT BEDSIDE.
--- NOTE | 2020-05-24 11:30 | PC.NURSE ---
DR. REYES NOTIFIED OF CONSULT FOR FX L. CLAVICLE.
--- NOTE | 2020-05-24 11:45 | PC.NURSE ---
BUSINESS SERVICES ADMINISTRATOR, RASHEEDA TRAYLOR, HERE TO SEE PT FOR DISCHARGE NEEDS.
--- NOTE | 2020-05-24 12:00 | PC.NURSE ---
PT'S SISTER, MARCELA, HERE TO SEE PT. CONDITION UPDATE GIVEN. SPOKE TO DR. AYALA RE: PLAN FOR HEART.
--- NOTE | 2020-05-24 12:30 | PC.NURSE ---
FRONT DESK AGENT HERE TO MEET W/ PT'S SISTER AND PT. ABOUT DISCHARGE PLANNING.
--- NOTE | 2020-05-24 13:09 | PC.NURSE ---
REILLY Gao PA HERE TO SEE PT AND HIS SISTER AT BEDSIDE.
--- NOTE | 2020-05-24 15:11 | PM.IMPN ---
Progress Note: A&P Assessment and Plan (1) Syncope: Code(s): R55 - Syncope and collapse Status: Acute Assessment and Plan: Unclear etiology at this time -not orthostatic or hypotensive -echo does not show any etiology -telemetry with no alarm reviews -could be due to alcohol or undiagnosed cardiac arrhythmia -cardiology on board and recommend Holter monitor outpatient -family at bedside understands the patient is at risk if he continues to drink but the patient is not willing to quit at this time -he has a history of pretty recent epidural hematoma that [facility]. He has no neurological deficits at this time (2) Bradycardia: Code(s): R00.1 - Bradycardia, unspecified Status: Acute Assessment and Plan: Monitor on telemetry overnight -Holter monitor before discharge tomorrow (3) Tobacco abuse: Code(s): Z72.0 - Tobacco use Status: Chronic Assessment and Plan: Patient understands that he needs to quit smoking but does not have any plans to do so (4) Alcoholism: Code(s): F10.20 - Alcohol dependence, uncomplicated Status: Chronic Assessment and Plan: Last ciwa 6 but no physical symptoms on my exam -Continue librium but lower the dose -Continue with monitoring with CIWA scores. -Pt is on folic acid, mag and thiamin. -The patient has thrombocytopenia most likely due to his alcoholism. (5) Subdural hematoma: Code(s): S06.5X9A - Traumatic subdural hemorrhage with loss of consciousness of unspecified duration, initial encounter Status: Acute Assessment and Plan: seen at [facility] for this -unchanged, no neurological deficits -Monitor -Avoid chemical DVT prophylaxis (6) Hemidiaphragm paralysis: Code(s): J98.6 - Disorders of diaphragm Status: Acute Assessment and Plan: No acute SOB at this time -Will need outpt sniff test Time Spent With Patient Time with patient: 25 - 35 minutes Subjective Date/time seen: 05/24/20 15:11 Interval history: Pt is a 59-year-old male here for syncope. Patient was seen today with sister at bedside and we had a long discussion. He states he has not had any further syncope since it happened at the grocery store outpatient. He recalls that moment and just says he was leaning up against something and then does not remember. He says he thinks he had a drink earlier that day. He understands that he has a problem with alcohol complicates the picture. He has had multiple episodes of syncope/blacking out. We discussed Holter monitor and he is agreeable with this. Patient states he has not had any chest pain, shortness of breath, fevers, chills, nausea, vomiting, or leg swelling. He does not feel anxious, hear voices, or see things that are not there. Sister at bedside is concern for him but understands that he is an alcoholic. The patient states he has tried alcoholic anonymous in various other methods to quit but can't. He lost his house and due to this and feels discouraged about quitting altogether. Review of Systems Review of Systems: All systems reviewed & are unremarkable except as noted in HPI and below Exam Narrative: Exam Narrative: General: Well developed well nourished patient in NAD HEENT: normocephalic Neck: supple Neuro: Alert and oriented x4. Cranial nerves 2-12 intact. Equal strength the upper lower extremities 5/5 CV:RRR. Telemetry shows no signs of bradycardia or blocks. Resp:CTA Abd: Soft, non distended. No pain to palpation. Positive bowel sounds Extremities: No swelling, erythema, or pain to palpation. Objective Data Vital Signs Vital Signs: Vital Signs - 24 hr 05/23/20 15:24 05/23/20 15:26 05/23/20 16:37 Temperature Pulse Rate 82 93 84 Pulse Rate [Apical Monitor] Pulse Rate [Right Radial] Respiratory Rate 22 H Blood Pressure 151/99 H 139/88 144/90 H Pulse Oximetry 100 05/23/20
[2020-05-24] MEDS: PANTOPRAZOLE SODIUM IV 40 MG VIAL IV PUSH (16:15)
--- NOTE | 2020-05-24 16:50 | PC.NURSE ---
REPORT CALLED TO HARVINDER TRAYLOR ON MED TELE. PT. IS TO TRANSFER TO 332.
--- NOTE | 2020-05-24 17:05 | PC.NURSE ---
TRANSFERRED VIA BED WITH ALL PERSONAL BELONGINGS FROM [facility] 5 MED TELE OVERFLOW TO 332 MED TELE STATUS PT. VOICES NO C/O AT THIS TIME. REPORT HAS BEEN CALLED TO INDIRA TRAYLOR. PT'S SISTER, MARCELA, NOTIFIED OF TRANSFER AND NEW ROOM NUMBER.
--- NOTE | 2020-05-24 17:31 | PC.NURSE ---
This patient, Zachery Cameron, was received from [ [facility]] on 05/24/20 at 1710. Patient/family oriented to unit policies and routines
[2020-05-25] VITALS (10 sets, daily range): BP systolic 105–177; BP diastolic 71–102; PULSE 78–100; RESP 16–22; TEMP 36.5–36.7; O2SAT 99–100
[2020-05-25] MEDS: HYDROcodone/acetaminophen (*CRX) 5-325 MG TABLET 1 TAB PO (05:35)
[2020-05-25] MEDS: chlordiazePOXIDE (*CRX) 25 MG CAPSULE PO (05:35)
[2020-05-25] MEDS: MAGNESIUM OXIDE 400 MG TABLET PO (09:10)
[2020-05-25] MEDS: FOLIC ACID 1 MG TABLET PO (09:10)
[2020-05-25] MEDS: PANTOPRAZOLE SODIUM IV 40 MG VIAL IV PUSH (09:10)
[2020-05-25] MEDS: THIAMINE HCL 100 MG TABLET PO (09:10)
--- NOTE | 2020-05-25 11:27 | PM.DS ---
DS: Admitting Diagnosis Admitting Diagnosis Admitting Diagnosis: syncope DS: Discharge Diagnosis Discharge Diagnosis (1) Syncope: Code(s): R55 - Syncope and collapse Status: Acute Assessment and Plan: No recurrent symptoms during hospitalization -He walked with PT prior to discharge and did well with no symptoms of syncope/pre-syncope -he not orthostatic or hypotensive -echo does not show any etiology -telemetry with no alarm reviews -could be due to alcohol or undiagnosed cardiac arrhythmia -heart monitor placed at discharge with Dr. childress's group -Spoke to pt and sister about plan of care -he has a history of pretty recent epidural hematoma that he sees someone at [facility] for. He has no neurological deficits at this time (2) Bradycardia: Code(s): R00.1 - Bradycardia, unspecified Status: Acute Assessment and Plan: As above -no alarm reviews (3) Tobacco abuse: Code(s): Z72.0 - Tobacco use Status: Chronic Assessment and Plan: Patient understands that he needs to quit smoking but does not have any plans to do so (4) Alcoholism: Code(s): F10.20 - Alcohol dependence, uncomplicated Status: Chronic Assessment and Plan: Last ciwa 4 but no physical symptoms on my exam -long discussion with patient about the plan of care. He understands that he cannot quit drinking alcohol abruptly due to his history. I offered him Librium as a taper but really stressed to him that he cannot take this and alcohol the same time. He states although his intentions are good, he will start drinking after he leaves and is not wanting the medication at this time. He states he will follow-up with his primary care physician if he changes his mind. He has a sister that is a nurse who was resources full and he can reach out to if needed -Pt discharge on folic acid, mag and thiamin. -The patient has thrombocytopenia most likely due to his alcoholism. (5) Subdural hematoma: Code(s): S06.5X9A - Traumatic subdural hemorrhage with loss of consciousness of unspecified duration, initial encounter Status: Acute Assessment and Plan: seen at [facility] for this -unchanged, no neurological deficits -Monitor -educated follow-up with his neurosurgeon as routinely scheduled (6) Hemidiaphragm paralysis: Code(s): J98.6 - Disorders of diaphragm Status: Acute Assessment and Plan: No acute SOB at this time -Will need outpt sniff test DS: Summary Hospital Course Hospital Course: Patient is a 59-year-old male who presented emergency room for syncope. Patient has a history of falls/syncope where he has been hospitalized.He was standing in line at the store when he suddenly felt weak and dizzy and laid his head on the counter and then felt weak and passed out although he denies complete loss of consciousness. Vitals in the ER were temperature 98.8? F, pulse 90, respiratory rate 25, blood pressure 79/56, pulse ox 100. EMS run report states that he was bradycardic during arrival but no specific details. In the ER his EKG showed normal sinus rhythm with a rate of 85. CBC within normal limits with the exception of platelets 112 likely due to alcoholism. BMP within normal limits. Magnesium 1.7. Troponin negative. Patient was admitted to the hospitalist service and observed for 2 nights on telemetry. He had no further bradycardia or arrhythmia. He was walking with physical therapy and had no presyncopal or syncopal episodes. Due to this recurrence, an echocardiogram was done and revealed no wall motion abnormalities, EF of 55-60%, grade 2 diastolic dysfunction with no valve disease. Cardiology was consulted due to mention of bradycardia by EMS but unfortunately this was not proven throughout his stay. A Holter monitor was ordered and placed at discharge and he is going to follow-up with them. At discharge the patient did not have any symptoms of a
[2020-05-25 11:49] LABS: Glucose Point of Care 102 (65-105)
== END 2020-05-25 13:40 | disposition home health service (06) ==
LOC: ANHED 14:47 → ANHCPC 20:50 → ANH3MEDSUR 05-25 11:27 → ANHCPC 05-26 13:19
PROVIDERS: Nurse Practitioner; Admitting Provider Internal Medicine; Emergency Provider Emergency Medicine; PCP Family Medicine; Visit Provider Physician Assistant
DX: R55 Syncope and collapse (principal); R00.1 Bradycardia, unspecified; F17.210 Nicotine dependence, cigarettes, uncomplicated; F10.20 Alcohol dependence, uncomplicated; Z66 Do not resuscitate; J98.6 Disorders of diaphragm; S06.5X9D Traumatic subdural hemorrhage with loss of consciousness of unspecified duration, subsequent encounter
CPT/HCPCS: 36415; 70450; 71046; 80048; 80053; 80307; 82948; 83605; 83615; 83690; 83735; 84443; 84484; 85025; 85055; 85610; 85730; 93005; 93306; 93880; 96374; 97110; 97116; 97161; 97165; 99285; A9270; C9113; G0378; G0379

== ENCOUNTER 2020-05-26 07:45 | Inpatient (IN) | payer OTHER, SELFPAY ==
[2020-05-26] VITALS (56 sets, daily range): BP systolic 88–164; BP diastolic 71–108; PULSE 65–101; RESP 10–31; TEMP 35.9–36.9; O2SAT 88–100; BMI 22.4
--- NOTE | ~2020-05-26 | CT_ITS ---
EXAMINATION: CT soft tissue neck w con DATE: 05/28/2020 09:35 INDICATION: Left supraclavicular lymphadenopathy. TECHNIQUE: Computed tomography (CT) of the neck was performed with 75 mL Omnipaque-350 intravenous co ntrast. Automated exposure control and iterative reconstruction technique were employed. The dose-william gth product was 475.93 mGy-cm. COMPARISON: Chest CT 05/26/2020 FINDINGS: The visualized portions of the lung apices demonstrate minimal atelectasis. There is a left supraclavicular olaf mass measuring 4.6 x 3.5 cm. There are surgical clips in the left neck. There is left high internal jugular and spinal accessory chain lymphadenopathy. There is plaque in the prox imal internal carotid arteries with less than 50% stenosis relative to normal distal artery lumen chad meters. There is severe cervical spondylosis. There is a lytic lesion involving T5 vertebral body and the posterior elements with pathologic burst fracture and moderate central canal stenosis. IMPRESSION: 1. Left-sided cervical lymphadenopathy and T5 pathologic burst fracture, consistent metastatic diseas e. Reviewed, dictated and finalized at location B. IMPRESSION: 1. Left-sided cervical lymphadenopathy and T5 pathologic burst fracture, consis tent metastatic disease.
--- NOTE | ~2020-05-26 | CT_ITS ---
EXAMINATION: CTA chest PE protocol DATE: 05/26/2020 09:35 INDICATION: Chest pain and shortness of breath TECHNIQUE: Computed tomography angiography (CTA) of the chest was performed with 100 mL Omnipaque-350 intravenous contrast timed to evaluate the pulmonary arteries. Coronal maximum intensity projection 3D-reconstructions were created by the technologist. The dose-length product (DLP) was 205.95 mGy-cm. Automated exposure control and iterative reconstruction technique were employed. COMPARISON: None. FINDINGS: The pulmonary arteries are well-opacified. No pulmonary embolism is identified. There is mi ld emphysema. There is atelectasis of the lingula and left lower lobe. No pleural effusion or pneumot horax is identified. The heart size is normal. Calcified coronary artery atherosclerosis is noted. Th ere is an approximately 2.9 x 1.9 cm partially calcified left supraclavicular soft tissue mass. There is a lytic lesion of the T5 vertebral body which extends to the bilateral lamina and right pedicle. There is a pathologic burst fracture of T5 with posterior soft tissue density causing moderate centra l canal stenosis at this level. Mild bilateral gynecomastia is noted. There is a questionable 2.5 cm mass in the tail of the pancreas. IMPRESSION: 1. No pulmonary embolism. 2. Left supraclavicular mass concerning for metastatic disease from prior tonsillar cancer. 3. Pathologic burst fracture of T5 with soft tissue density causing at least moderate central canal s tenosis, consistent with metastatic disease. 4. Possible mass in the tail of the pancreas. If further evaluation is desired, would recommend follo w-up with nonemergent MRI without and with contrast. Reviewed, dictated and finalized at location B. IMPRESSION: 1. No pulmonary embolism. 2. Left supraclavicular mass concerning for metastatic disease from prior tonsi llar cancer. 3. Pathologic burst fracture of T5 with soft tissue density causing at least mo derate central canal stenosis, consistent with metastatic disease. 4. Possible mass in the tail of the pancreas. If further evaluation is desired, would recommend follow-up with nonemergent MRI without and with contrast.
--- NOTE | ~2020-05-26 | CT_ITS ---
EXAMINATION: CT brain wo [facility] EXAM DATE: 05/26/2020 08:41 INDICATION: Headache, history of epidural . History of extra-axial hematoma. TECHNIQUE: Spiral CT of the head was performed without contrast. Axial, coronal and sagittal images were reviewed. The dose-length product (DLP) for this examination was 605.33 mGy-cm. The exposure w as tailored according to patient size, and iterative reconstruction (ASIR) was used as additional dos e reduction technique. Comparison is made to prior examination from 05/23/2020. FINDINGS: There is moderate size left-sided extra-axial hematoma again noted (measuring about 15 mm i n maximal thickness). This is relatively well accommodated due to the underlying atrophy, no midline shift or ventricular narrowing. Difficult appreciate any significant interval change compared to prio r studies. More specifically, there is no evidence of repeat hemorrhage, however the density is also not diminished as could be expected from initial diagnosis from 05/05/2020. Could be subdural location , no overlying calvarial fracture, but convex shaped and location make epidural location also possibl e. Mild microangiopathy and moderate cerebral atrophy. No acute intraparenchymal hematoma, mass lesion, obstructive hydrocephalus or evidence of acute infarction. There is an old right caudate head/interna l capsular lacunar infarction. IMPRESSION: 1. No change in appearance to moderate sized left-sided extra-axial hyperdense collection consistent with hematoma. 2. 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 3. Atrophy and microangiopathy. Reviewed, dictated and finalized at location A.
--- NOTE | ~2020-05-26 | XR_ITS ---
EXAMINATION: XR chest 1V portable EXAM DATE: 05/26/2020 08:37 INDICATION: Mid chest pain. Recent falls. TECHNIQUE: Portable AP frontal chest x-ray was obtained. Comparison is made to prior examination from 05/23/2020. FINDINGS: Again there is left hemidiaphragm elevation with adjacent segmental atelectasis. This could indicate diaphragm paralysis, which can be evaluated with nonemergent fluoroscopic guided sniff test if indicated clinically. Metallic monitoring device overlying patient's left hemithorax. Surgical ch anges probably left thyroidectomy. No evidence of pneumonia. No pneumothorax or pleural effusion. Inferiorly displaced left clavicular f racture, probably old. Some chronic hyperinflation. There is no significant interval change. IMPRESSION: 1. Chronic left hemidiaphragm elevation, adjacent segmental atelectasis. 2. Left hemidiaphragm elevation. Possible paralysis. Reviewed, dictated and finalized at location A.
--- NOTE | ~2020-05-26 | US_ITS ---
EXAMINATION: US biopsy st neck thorax DATE: 05/29/2020 13:00 INDICATION: Supraclavicular left neck mass TECHNIQUE: The procedure including the risks and benefits was discussed with the patient. Risks discu ssed included bleeding and infection. The patient understood the risks and agreed to proceed. The sk in overlying the supraclavicular region of the left neck was prepped and draped in usual sterile fash ion. Anesthetic was administered with 1% lidocaine subcutaneously. An 18 gauge core biopsy needle w as advanced under continuous ultrasound observation to the lesion of interest. 3 core biopsy specime ns were obtained. The needle was removed and the entry site was cleaned and dressed. Post procedure ultrasound demonstrated no hemorrhage. FINDINGS: Ultrasound images demonstrate a poorly defined approximately 4.4 x 3.9 x 2.9 cm multilobula r mass at the region of concern. This surrounds a few small linear echogenic surgical clips. Subseque nt images demonstrate biopsy needle advanced into the mass which was relatively firm with significant resistance to advancement of the needle. IMPRESSION: 1. Successful Ultrasound-guided biopsy of a multilobular 4.4 x 3.9 x 2.9 cm mass in the left supra cl avicular region which is concerning for recurrent malignancy. Reviewed, dictated and finalized at location A. IMPRESSION: 1. Successful Ultrasound-guided biopsy of a multilobular 4.4 x 3.9 x 2.9 cm mas s in the left supra clavicular region which is concerning for recurrent maligna ncy.
--- NOTE | 2020-05-26 08:01 | ECG_ITS ---
Measurements Intervals [place] Rate: 89 P: 71 DE: 122 QRS: 29 QRSD: 89 T: 47 QT: 372 QTc: 454 Interpretive Statements SINUS RHYTHM BASELINE ARTIFACT- II, III, AVR, AVF, V3-V6 NORMAL ECG Electronically Signed On 05-26-2020 11:52:25 CDT by Johny Oneil D.O.
[2020-05-26] MEDS: SODIUM CHLORIDE 0.9% IV 1,000 ML 999 ML IV CONT (08:10)
[2020-05-26 08:16] LABS: Alveolar/Arterial O2 Gradient 31.3 mmHg; Base Excess ABG 2.1 mEq/l (+/-2.0); Carboxyhemoglobin 1.8 % THb (0-2.0); Fractional Inspired Oxygen 21 %; HCO3 ABG 22.7 mEq/l (22.0-26.0); Methemoglobin ABG 0.3 %THb (0-1.5); Oxygen Content ABG 21.3 %vol (16.0-22.0); Oxygen Saturation ABG 97.7 % (95.0-100.0); PCO2 ABG 26.2 mmHg (35.0-45.0); PO2 ABG 87.1 mmHg (80.0-100.0); PO2 FiO2 Ratio Arterial Blood 4.15 %; Reduced Hemoglobin 2.9 %THb (0-5.0); Total Hemoglobin 15.9 g/dL (12.0-18.0)
[2020-05-26 08:18] LABS: Device ROOM AIR; Modified Allen's Test Pass; Site Drawn LEFT RADIAL; pH ABG 7.556 (7.350-7.450)
[2020-05-26 08:23] LABS: Basophils Absolute Auto 0.1 K/mm3 (0.0-0.1); Basophils Percent Auto 0.8 % (0.2-1.2); Eosinophils Absolute Auto 0.1 K/mm3 (0-0.3); Eosinophils Percent Auto 1.3 % (0-4.4); Hemoglobin 16.6 g/dL (14.0-18.0); Immature Granulocyte Absolute 0.02 K/mm3 (0.00-0.031); Immature Granulocyte Percent A 0.3 % (0-0.5); Immature Platelet Fraction Pct 7.5 % (0.9-11.2); Lymphocytes Absolute Auto 1.68 K/mm3 (0.9-3.2); Lymphocytes Percent Auto 27.9 % (18.3-44.2); Mean Corpuscular HGB Conc 35.3 g/dl (32-36); Mean Corpuscular Hemoglobin 34.3 pg (26-34); Mean Corpuscular Volume 97.1 fl (80-100); Mean Platelet Volume 10.9 fl (7.4-10.4); Monocytes Absolute Auto 0.8 K/mm3 (0.1-0.6); Neutrophils Absolute Auto 3.4 K/mm3 (1.3-6.7); Neutrophils Percent Auto 55.7 % (45.5-73.1); Platelet Count Result 110 k/mm3 (150-375); Red Blood Count 4.84 M/mm3 (4.6-6.20); Red Cell Distribution Width 12.2 % (11.5-14.5)
[2020-05-26 08:26] LABS: Ethanol < 10 mg/dL (<10); Lipase 41 U/L (23-300); Magnesium 1.7 mg/dL (1.6-2.3)
[2020-05-26 08:27] LABS: INR 0.9; Prothrombin Time 12.4 Seconds (11.1-14.7)
[2020-05-26 08:28] LABS: Partial Thromboplastin Time 23.5 SECONDS (22.3-36.8)
[2020-05-26 08:28] LABS: Creatine Kinase 32 U/L (55-170)
--- NOTE | 2020-05-26 08:35 | ED.GENADULT ---
HPI - General Adult General Chief complaint: Chest Pain Stated complaint: CP/WEAKNESS Time Seen by Provider: 05/26/20 07:45 Source: patient Mode of arrival: EMS Limitations: other (patient is a poor historian) History of Present Illness HPI narrative: This is a 59 year old male with history alcoholism, bradycardia and recent intracranial hemorrhage who presents to ER for evaluation of weakness and chest pain. Patient states his neighbor called 911 because he was slumped over a chair. Patient states he was leaning over the chair because he has chronic upper chest pain that feels better with that position. She also reports he feels weak. He told EMS that he had a sip of beer today and he drinks beer daily. He reports he has constant dull pain to upper midsternum that is nonradiating. He is also complaining of headaches. EMS reported that patient fell when he arrived back home yesterday. HE was discharged from [place] yesterday after evaluation of bradycardia. He has had stable epidural on this previous admission, and he [facility] for this epidural hematoma. He was prescribed keppra after that visit but he has not been taking. He denies cough, fever, nausea, vomiting, abdominal pain. Related Data Home Medications Medication Instructions Recorded Confirmed ergocalciferol (vitamin D2) 50,000 unit PO WEEKLY 05/23/20 05/26/20 folic acid 1 mg PO DAILY 05/23/20 05/26/20 Allergies Allergy/AdvReac Type Severity Reaction Status Date / Time No Known Allergies Allergy Unverified 02/24/12 13:29 Review of Systems Review of Systems: All systems reviewed & are unremarkable except as noted in HPI and below Constitutional: Constitutional: Denies chills, Reports fatigue and Denies fever(s) Cardiovascular: Cardiovascular: Reports chest pain Respiratory: Respiratory: Denies cough and Denies dyspnea Gastrointestinal: Gastrointestinal: Denies abdominal pain, Denies diarrhea, Denies nausea and Denies vomiting Neurologic: Denies dizziness, Reports headache(s), Denies focal weakness and Denies numbness [facility] Past Medical History Medical History (Updated 05/26/20 @ 19:23 by Estella Rae MD) Alcoholism Patient denies significant medical history Tobacco abuse Tonsillar cancer Apparently has a 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 Was supposed to get chemo and radiation therapy but the patient did not follow-up. Surgical History Surgical History History of tonsillectomy Family History Family History Mother Hypertension Father Hypertension Social History Social History Social History: About half pack a cigarettes a day. He drinks about 12 pack of beer a day. Patient used to work as a [employer] in [place]. 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 He does not have any children and is single. He lives home alone. He said that he is semi retired. Smoking packs per day: 0.5 Smoking cigarettes per day: 10.0 Smoking status: Current every day smoker Second hand tobacco smoke exposure: Yes Alcohol intake: current Drinks per week: 84 Substance use: current Substance use type: marijuana Last use: unsure Spiritual care concerns: No Exam Const: General: no acute distress and ill appearing Orientation/consciousness: patient oriented x3 HENMT: Head: normocephalic and atraumatic Face and sinus: face symmetric Mouth: Yes Normal oral and palatal mucosa present, Yes lip normal, Yes oropharynx normal and Yes moist mucous membranes Eyes: Pupils: Equal, round and reactive pupils present EOM: EOMs intact bilaterally Neck: Neck: normal visual inspection Chest: Chest palpation & inspection: no tenderness Res
[2020-05-26 08:38] LABS: Troponin I < 0.012 ng/mL (0.000-0.034)
[2020-05-26 08:41] LABS: Lactic Acid Reflex 1.6 mmol/L (0.7-2.1)
[2020-05-26 08:53] LABS: Alanine Aminotransferase 28 U/L (4-50); Albumin Level 4.2 g/dL (3.5-5.1); Alkaline Phosphatase 55 U/L (38-126); Anion Gap 8 mmol/L (8-16); Aspartate Amino Transferase 41 U/L (17-59); Bilirubin,Total 0.5 mg/dL (0.2-1.3); Blood Urea Nitrogen 12 mg/dL (9-20); Calcium 9.5 mg/dL (8.4-10.2); Carbon Dioxide 30 mmol/L (22-30); Chloride 100 mmol/L (98-107); Estimated Glomerular Filt Rate > 60; Glucose 108 mg/dL (75-110); Potassium 3.7 mmol/L (3.4-5.0); Sodium 138 mmol/L (137-145)
--- NOTE | 2020-05-26 09:08 | PC.NURSE ---
Patient is not able to urinate at this time, patient states I will piss at some point. patient declines straight cath at this time.
[2020-05-26 09:41] LABS: Glucose Point of Care 88 (65-105)
[2020-05-26 10:05] LABS: Add Urine Microscopic? YES; Appearance Urine Cloudy (Clear); Bilirubin Urine Negative (Negative); Blood Urine Negative (Negative); Color Urine Amber (Yellow); Glucose Urine UA Negative (Negative); Ketones Urine Trace mg/dL (Negative); Leukocyte Esterase Ur Negative LEU/UL (Negative); Mucus Urine Heavy /lpf; Nitrate Urine Negative (Negative); Protein Urine 1+ mg/dL (Negative); RBC Urine 0-2 /hpf (0-2); Urobilinogen Urine Negative mg/dL (<2.0)
[2020-05-26 10:07] LABS: Specific Grav Ur 1.055 (1.001-1.035)
--- NOTE | 2020-05-26 11:00 | PC.NURSE ---
WILL BREAUX at bedside.
--- NOTE | 2020-05-26 12:19 | PC.NURSE ---
Patient's lunch ordered at this time.
[2020-05-26 12:39] LABS: Troponin I < 0.012 ng/mL (0.000-0.034)
--- NOTE | 2020-05-26 17:10 | PC.NURSE ---
Report called to Sada TRAYLOR
--- NOTE | 2020-05-26 17:18 | PCCCNOTE ---
Met with pt and his sister/HPOA, Rosa M Ott, regarding pt situation and discharge plans. Pt states he lives alone and is aware he has some form of cancer and is just too weak to remain at home. Pt discharged from [facility] 2 days ago to home. Pt is agreeable to going to a facility that accepts his [facility] benefits. He chose [facility] and per rep Deysi at the facility she can accept the pt at dicharge with a negative COVID test. Sister, Rosa M, stated during this interaction, pt and she would like a biopsy done of this mass to determine if mass is cancerous and what form of cancer. Pt does not want any treatment if he is found to have cancer. Sister brought up hospice care and we explored this option, pending the outcome of the patient biopsy. If hospice is needed for pt, they would like [facility] services at the [facility]. rep Deysi is aware of this possibility as well. OBRA screen has been requested and a COVID swab was obtained. Pt is aware he is being placed in observation status.
--- NOTE | 2020-05-26 17:25 | ADMGEN ---
This patient, Zachery Cameron, was admitted to Medical Room 245-. Patient/family oriented to hospital policies and general routines including ID bracelet, bed and alarms, visiting hours, pain management, procedures, bathroom and other care routines, personal items, smoking policy, room service/diet, and visiting hours. Information on how to activate the Rapid Response Team has been discussed. Patient/Family are encouraged to report perceived risks to care and to ask questions if they do not understand what they are told or what they should do.
--- NOTE | 2020-05-26 17:28 | PCCCNOTE ---
Met with pt and his sister/HPOA, Rosa M Ott and both state pt lives at home alone and has been too weak to ambulate or care for himself since discharge from [facility] 2 days ago. Pt states he has some form of cancer and is followed by Dr. Solano at [facility]. He states he is not interested in treating his cancer. Pt understands he is not able to go home as he lives alone and has no one to assist him at home. Both he and sister were provided with a list of facilities that accept [facility] for placement and he chose [facility]. A referral was made to rep Deysi at [facility] and she can accept the pt, if he has a negative COVID test. OBRA screen requested. Sister states she would like to have a biposy of the mass on pt neck so they are sure mass is cancerous. She states she has discussed this with the ED physician. She them stated, if the mass is found to be cancerous, they would like [facility] at the facility. rep Deysi at [facility] is aware of his request as well. COVID test is obtained already.
--- NOTE | 2020-05-26 18:00 | PM.IMHP ---
H&P: HPI History of Present Illness Date/Time: 05/26/20 18:00 Chief Complaint: Weakness. Narrative: This is a 59-year-old male with longstanding history of alcoholism, tonsillar cancer status post tonsillectomy, and falls with history of epidural hematoma several weeks ago which was stable on brain CT today who presented to the emergency department earlier this morning via EMS from home for evaluation of generalized weakness. He was just discharged from the hospital yesterday after a 2 day stay in which he was initially admitted for a syncopal episode. Apparently there was concern that it was perhaps due to bradycardia however I reviewed his vital signs and he had 1 isolated pulse of 52 during that stay, the rest being well within normal limits. He worked with PT and did well getting up and about and was discharged home although there was some discussion about possible assisted living. This morning the patient's neighbor found him minimally responsive with his knees on the ground and his upper body slumped over a chair in the living room. He tells me that he got down on his knees to rest and does not think he lost consciousness however neighbor says he really was not responding. EMS was summoned and on their arrival he complained of vague chest discomfort radiating to the back as well as some mild shortness of breath. No pulmonary embolism was noted on chest CTA today however a left supraclavicular mass was noted, concerning for metastatic disease given history of tonsillar cancer which was not treated be on tonsillectomy as the patient continue to drink heavily and could not complete chemotherapy and radiation. A pathologic burst fracture of T5 was also noted consistent with metastatic disease however he had absolutely no midline vertebral pain on exam today. Additionally a possible mass was noted in the tail of the pancreas. I had a long discussion with the patient his sister at bedside, with the patient's permission, and he is amenable to excision of the left supraclavicular mass to obtain a diagnosis although he is not certain if he would want chemotherapy or radiation. He is not currently having chest pain at this time. He has no known history of cardiac disease. He also denies epigastric and abdominal pain and denies GERD, indigestion, and history of peptic ulcers. He has no history of pancreatitis. He also denies significant back pain, saddle anesthesia, lower extremity paresthesias, and incontinence. Review of Systems Review of Systems: Narrative: Twelve systems were reviewed with pertinent positives and negatives as per HPI. No fever, chills, or sweats. No recent cold or flu symptoms. He states he has been eating and drinking as per usual in believes that his weight is stable. No nausea, vomiting, or diarrhea. He denies dysuria. No history of seizures. He will occasionally have tremors if it is been longer than 24 hours without a drink. He denies active tremors, agitation, diaphoresis, and hallucinations. Currently taking Keppra for seizure prophylaxis given recent epidural hematoma as detailed above. He has generalized weakness without focal deficits. Except as documented, all other systems were reviewed and are negative. [facility] Past Medical History Medical History (Updated 05/26/20 @ 22:08 by Nela Underwood PA-C) Alcoholism Epidural hematoma (~05/05/20) Transferred to [facility] from our emergency department, managed conservatively. Patient started on Keppra for seizure prophylaxis. 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 Was supposed to get chemo and radiation therapy but the patient did not follow-up. Patient of Dr. Cristi Solano at [facility]. Surgical History Surgical History History of tonsillectomy Family History Family History (Reviewe
[2020-05-26] MEDS: HYDROcodone/acetaminophen (*CRX) 5-325 MG TABLET 1 TAB PO (22:10)
[2020-05-26] MEDS: THIAMINE HCL 200 MG/2 ML VIAL 100 MG IV PUSH (23:11)
[2020-05-26] MEDS: chlordiazePOXIDE (*CRX) 25 MG CAPSULE 50 MG PO (23:12)
[2020-05-27] VITALS (10 sets, daily range): BP systolic 120–153; BP diastolic 74–89; PULSE 64–91; RESP 16–20; TEMP 35.9–36.9; O2SAT 94–100
[2020-05-27] MEDS: HYDROcodone/acetaminophen (*CRX) 5-325 MG TABLET 1 TAB PO ×2 (04:37→21:18)
[2020-05-27 05:37] LABS: Hematocrit 42.9 % (42.0-52.0); Hemoglobin 14.9 g/dL (14.0-18.0); Immature Platelet Fraction Pct 6.6 % (0.9-11.2); Mean Corpuscular HGB Conc 34.7 g/dl (32-36); Mean Corpuscular Hemoglobin 34.3 pg (26-34); Mean Corpuscular Volume 98.6 fl (80-100); Platelet Count Result 105 k/mm3 (150-375); Red Blood Count 4.35 M/mm3 (4.6-6.20); White Blood Count 5.9 K/mm3 (4.5-10.0)
[2020-05-27 05:52] LABS: Alanine Aminotransferase 27 U/L (4-50); Albumin Level 3.7 g/dL (3.5-5.1); Alkaline Phosphatase 55 U/L (38-126); Anion Gap 4 mmol/L (8-16); Aspartate Amino Transferase 34 U/L (17-59); Bilirubin,Total 0.3 mg/dL (0.2-1.3); Blood Urea Nitrogen 16 mg/dL (9-20); Calcium 9.1 mg/dL (8.4-10.2); Carbon Dioxide 30 mmol/L (22-30); Chloride 103 mmol/L (98-107); Estimated CRCL calculation 78 ml/min; Estimated Glomerular Filt Rate > 60; Glucose 101 mg/dL (75-110); Magnesium 1.7 mg/dL (1.6-2.3); Phosphorus 5.1 mg/dL (2.5-4.5); Potassium 3.5 mmol/L (3.4-5.0); Sodium 137 mmol/L (137-145)
[2020-05-27] MEDS: chlordiazePOXIDE (*CRX) 25 MG CAPSULE 50 MG PO ×3 (05:53→17:51)
[2020-05-27 06:58] LABS: Folic Acid 9.5 ng/mL (2.76->20)
[2020-05-27] MEDS: THERAPEUTIC MULTIVITAMINS/MINERALS TAB (*BKC) 1 TABLET PO (09:49)
[2020-05-27] MEDS: FOLIC ACID 1 MG TABLET PO (09:49)
[2020-05-27] MEDS: THIAMINE HCL 100 MG TABLET PO (09:49)
[2020-05-27] MEDS: MAGNESIUM OXIDE 400 MG TABLET PO (09:49)
[2020-05-27] MEDS: PANTOPRAZOLE SOD SESQUIHYDRATE 20 MG TAB PO (09:49)
--- NOTE | 2020-05-27 11:02 | PM.CNGS ---
Assessment and Plan Assessment and plan (1) Supraclavicular lymphadenopathy: Onset Date: Unknown Code(s): R59.0 - Localized enlarged lymph nodes Status: Acute Assessment and Plan: This is the main reason for my consultation. I believe most likely if this is an abnormal mass after comparing a new CT scan of the soft tissues of the neck with contrast to the one done in January of 2020 we may be able to biopsy this by ultrasound-guided core biopsy rather than needing to excise it. Since the patient has had a previous left modified radical neck dissection I think if he actually needs a formal open incisional or excisional biopsy that this should be done by his former head/ neck surgeon at [facility] Dr. Cristi Solano. Therefore, my recommendation will be to proceed with a soft tissue CT scan of the neck with contrast today. If this appears to be a possible metastatic focus or an abnormal lymph node Dr. Dove (Radiologist) will plan to do a ultrasound-guided core biopsy on Friday. Pathology is not available to help with processing the core biopsy during the weekend. I have discussed the plan with the patient he is willing to proceed with a soft tissue CT scan of the neck with contrast. 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 (2) Epidural hematoma: Onset Date: ~05/05/20 Code(s): S06.4X9A - Epidural hemorrhage with loss of consciousness of unspecified duration, initial encounter Status: Acute Assessment and Plan: The patient is being monitored and apparently no worsening of this by head CT yesterday. (3) History of cancer tonsil: Onset Date: ~2018 Code(s): Z85.818 - Personal history of malignant neoplasm of other sites of lip, oral cavity, and pharynx Status: Acute Assessment and Plan: Patient states that he did have surgical intervention for this. He knows he had an incision on his Lt. neck which was probably a modified radical left neck dissection with removal of nodes. He may have also had removal of the tonsil within his throat. He denies any problems swallowing at this time. He did note that he refused chemotherapy and radiation after his surgery although it was recommended. (4) Thrombocytopenia: Onset Date: Unknown Code(s): D69.6 - Thrombocytopenia, unspecified Status: Acute Assessment and Plan: Platelet count on 05/27/2020 is adequate for doing a core biopsy with platelet level of 105,000. (5) Fracture of thoracic vertebra, closed: Code(s): S22.009A - Unspecified fracture of unspecified thoracic vertebra, initial encounter for closed fracture Status: Acute Assessment and Plan: This may be a pathologic fracture. Will await results of possible biopsy if indicated of this abnormality in the area of the left supraclavicular region. (6) Tonsillar cancer: Code(s): C09.9 - Malignant neoplasm of tonsil, unspecified Status: Acute (7) Alcoholism: Code(s): F10.20 - Alcohol dependence, uncomplicated Status: Chronic Assessment and Plan: Patient is on standard protocol to for observation of this while hospitalized and not using alcohol. History of Present Illness Consult details Consult date: 05/27/20 Reason for consult: other (Enlarged lymph node or scar tissue left neck noted on chest CT) Requesting physician: Junito Maravilla MD Narrative: this patient is a pleasant 59-year-old white male alcoholic who re-presented to the hospital within the last 24 hours after being found somewhat unresponsive at home again. This was a 2nd time in recent days. He already has a portable heart monitor attached to monitor his possibly rhythm is. Upon readmission a CT scan of the chest (CTA) was done to rule out PE. On this study an abnormality was noted just behind th
--- NOTE | 2020-05-27 14:59 | PM.IMPN ---
Progress Note: A&P Assessment and Plan (1) Supraclavicular lymphadenopathy: Onset Date: Unknown Code(s): R59.0 - Localized enlarged lymph nodes Status: Acute Assessment and Plan: plan for probable core biopsy on Friday (2) Generalized weakness: Code(s): R53.1 - Weakness Status: Acute Assessment and Plan: likely secondary to longstanding alcohol intake will request PT OT consult paraneoplastic syndrome could be a possibility (3) Metastatic neoplastic disease: Code(s): C79.9 - Secondary malignant neoplasm of unspecified site Status: Acute Assessment and Plan: patient with lymph nodes apparently new on imaging study will need biopsy appreciate surgery note (4) Subdural hematoma: Code(s): S06.5X9A - Traumatic subdural hemorrhage with loss of consciousness of unspecified duration, initial encounter Status: Acute Assessment and Plan: appears to be stable from recent imaging studies (5) Tonsillar cancer: Code(s): C09.9 - Malignant neoplasm of tonsil, unspecified Status: Acute Assessment and Plan: status post resection in 2019 (6) Alcoholism: Code(s): F10.20 - Alcohol dependence, uncomplicated Status: Chronic Assessment and Plan: unclear if patient continues to drink alcohol will monitor for withdrawal (7) Tobacco abuse: Code(s): Z72.0 - Tobacco use Status: Chronic Assessment and Plan: encouraged tobacco cessation Subjective Date/time seen: 05/27/20 14:59 patient is complaining of neck pain Review of Systems Review of Systems: Narrative: I was unable to get much history from the patient he care returning to the fact that he has some neck pain on the left side Exam Narrative: Exam Narrative: patient is laying in bed Const: General: comfortable, no acute distress, well developed, alert and awake Nutritional Appearance: average body habitus Orientation/consciousness: patient oriented x3 HENMT: Head: normal to inspection, normocephalic and atraumatic Ears: hearing grossly normal bilaterally Face and sinus: normal facial exam Eyes: General: appearance normal, both eyes and all related structures Pupils: Equal, round and reactive pupils present EOM: EOMs intact bilaterally Neck: Neck: full ROM, no lymphadenopathy and no JVD Thyroid: thyroid normal Lymphatic: no lymphadenopathy noted Resp: Effort & Inspection: normal respiratory effort and able to speak in complete sentences Auscultation: clear to auscultation bilaterally Cardio: Jugular venous distension: no JVD Rate: regular rate Rhythm: regular rhythm Heart sounds: S1 normal heart sound present and S2 normal heart sound present GI: GI Palp: Yes Soft to palpation and Yes No hepatosplenomegaly present : General: Yes deferred Skin: Rashes: no rashes Wounds: no wounds Neuro: General: patient oriented x3 and CN's II-XI intact bilaterally Cranial nerves: Yes CN's II-XII intact bilaterally and Yes Equal, round and reactive pupils present Cognition (Neuro): normal cognition Speech: normal speech Gait exam (Neuro): Normal gait present Motor exam (neuro): 5/5 motor strength present throughout Extrem: General: normal to inspection, full ROM, no joint enlargement and no pedal edema Objective Data Vital Signs Vital Signs: Vital Signs - 24 hr 05/26/20 15:00 05/26/20 15:28 05/26/20 15:30 Temperature Pulse Rate Respiratory Rate 16 16 18 Blood Pressure Pulse Oximetry 95 99 97 05/26/20 15:42 05/26/20 15:45 05/26/20 16:00 Temperature Pulse Rate 88 86 84 Respiratory Rate 21 H 17 19 Blood Pressure 143/95 H Pulse Oximetry 98 98 99 05/26/20 16:39 05/26/20 17:16 05/26/20 17:25 Temperature 97.2 F L Pulse Rate 84 67 77 Respiratory Rate 17 16 16 Blood Pressure 117/87 110/85 127/71 Pulse Oximetry 98 99 99 05/26/20 18:25 05/26/20 18:42 05/26/20 20:00 Temperature P
[2020-05-27 19:44] LABS: SARS-CoV-2 RNA PCR Negative
[2020-05-28] VITALS (10 sets, daily range): BP systolic 122–148; BP diastolic 77–89; PULSE 73–86; RESP 18; TEMP 36.2–36.9; O2SAT 97–100
[2020-05-28] MEDS: chlordiazePOXIDE (*CRX) 25 MG CAPSULE 50 MG PO ×4 (00:03→17:38)
[2020-05-28] MEDS: THERAPEUTIC MULTIVITAMINS/MINERALS TAB (*BKC) 1 TABLET PO (08:19)
[2020-05-28] MEDS: THIAMINE HCL 100 MG TABLET PO (08:19)
[2020-05-28] MEDS: PANTOPRAZOLE SOD SESQUIHYDRATE 20 MG TAB PO (08:19)
[2020-05-28] MEDS: MAGNESIUM OXIDE 400 MG TABLET PO (08:19)
[2020-05-28] MEDS: FOLIC ACID 1 MG TABLET PO (08:19)
[2020-05-28] MEDS: HYDROcodone/acetaminophen (*CRX) 5-325 MG TABLET 1 TAB PO (08:27)
--- NOTE | 2020-05-28 13:56 | PM.IMPN ---
Progress Note: A&P Assessment and Plan (1) Supraclavicular lymphadenopathy: Onset Date: Unknown Code(s): R59.0 - Localized enlarged lymph nodes Status: Acute Assessment and Plan: patient will go for core biopsy in a.m. discussed with Dr. 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, unspecified Status: Acute Assessment and Plan: patient is status post resection (4) Tobacco abuse: Code(s): Z72.0 - Tobacco use Status: Chronic Assessment and Plan: unclear if patient still smokes (5) Subdural hematoma: Code(s): S06.5X9A - Traumatic subdural hemorrhage with loss of consciousness of unspecified duration, initial encounter Status: Acute Assessment and Plan: unchanged Subjective Date/time seen: 05/28/20 13:56 I feel fine Review of Systems Review of Systems: Narrative: patient denies any complaints at the time of my visit but states it does not have much of an appetite Exam Narrative: Exam Narrative: patient is laying in bed. Const: General: comfortable, no acute distress, well developed, alert, awake and ill appearing chronically Nutritional Appearance: thin Orientation/consciousness: patient oriented x3 HENMT: Head: normal to inspection, normocephalic and atraumatic Ears: hearing grossly normal bilaterally Face and sinus: normal facial exam Eyes: General: appearance normal, both eyes and all related structures Pupils: Equal, round and reactive pupils present EOM: EOMs intact bilaterally Neck: Neck: full ROM, no lymphadenopathy and no JVD Thyroid: thyroid normal Lymphatic: no lymphedema noted and lymphadenopathy left anterior cervical Resp: Effort & Inspection: normal respiratory effort and able to speak in complete sentences Auscultation: clear to auscultation bilaterally Cardio: Jugular venous distension: no JVD Rate: regular rate Rhythm: regular rhythm Heart sounds: S1 normal heart sound present and S2 normal heart sound present GI: GI Palp: Yes Soft to palpation and Yes No hepatosplenomegaly present : General: Yes deferred Skin: Rashes: no rashes Wounds: no wounds Neuro: General: patient oriented x3 and CN's II-XI intact bilaterally Cranial nerves: Yes CN's II-XII intact bilaterally and Yes Equal, round and reactive pupils present Cognition (Neuro): normal cognition Speech: normal speech Gait exam (Neuro): Normal gait present Motor exam (neuro): 5/5 motor strength present throughout Extrem: General: normal to inspection, full ROM, no joint enlargement and no pedal edema Objective Data Vital Signs Vital Signs: Vital Signs - 24 hr 05/27/20 14:00 05/27/20 16:00 05/27/20 20:00 Temperature 97.2 F L Pulse Rate 64 78 77 Respiratory Rate 16 Blood Pressure 120/74 Pulse Oximetry 98 05/27/20 21:25 05/28/20 00:00 05/28/20 04:00 Temperature 98.5 F Pulse Rate 68 79 79 Respiratory Rate 20 Blood Pressure 131/89 Pulse Oximetry 99 05/28/20 06:00 05/28/20 08:00 Temperature 98.1 F Pulse Rate 75 73 Respiratory Rate 18 Blood Pressure 122/77 Pulse Oximetry 97 Intake/Output Intake/Output: Intake & Output 05/25/20 05/26/20 05/27/20 05/28/20 23:59 23:59 23:59 23:59 Intake Total 1240 1710 500 Output Total 675 300 Balance 1240 1035 200 Meds/Results Medications: Active Medications Generic Name Dose Route Start Last Admin Trade Name Freq PRN Reason Stop Dose Admin Acetaminophen 650 mg 05/26/20 21:48 Acetaminophen 325 Mg Tablet PO Q6H PRN Mild Pain (1-3) or Fever Hydrocodone Bitart/Acetaminophen 1 tab 05/26/20 21:48 05/28/20 08:27 Hydrocodone/Acetaminophen (*Crx) 5-325 Mg Tablet PO 1 tab Q6H PRN Administration
--- NOTE | 2020-05-28 15:52 | PM.PNGS ---
Progress Note: A&P Assessment and Plan (1) Supraclavicular lymphadenopathy: Onset Date: Unknown Code(s): R59.0 - Localized enlarged lymph nodes Status: Acute Assessment and Plan: This is the main reason for my consultation. I believe most likely if this is an abnormal mass after comparing a new CT scan of the soft tissues of the neck with contrast to the one done in January of 2020 we may be able to biopsy this by ultrasound-guided core biopsy rather than needing to excise it. (Neck CT reviewed with and he believes that there is most likely new tumor growth in the area of abnormality) will order ultrasound-guided core biopsy of this area for Monday 05/29. Since the patient has had a previous left modified radical neck dissection I think if he actually needs a formal open incisional or excisional biopsy that this should be done by his former head/ neck surgeon at [facility] Dr. Cristi Solano. Therefore, my recommendation will be to proceed with a soft tissue ultrasound-guided core biopsy on Friday If this appears to be a possible metastatic focus or an abnormal lymph node Dr. Dove (Radiologist) will plan to do a ultrasound-guided core biopsy on Friday. Pathology is not available to help with processing the core biopsy during the weekend. I informed the patient today that the neck CT does seem to indicate that there is new tumor growth in this Left supraclavicular area. I have discussed the plan with the patient he is willing to proceed with a soft tissue core biopsy by ultrasound tomorrow. (2) Epidural hematoma: Onset Date: ~05/05/20 Code(s): S06.4X9A - Epidural hemorrhage with loss of consciousness of unspecified duration, initial encounter Status: Acute Assessment and Plan: The patient is being monitored and apparently no worsening of this by head CT yesterday. (3) History of cancer tonsil: Onset Date: ~2018 Code(s): Z85.818 - Personal history of malignant neoplasm of other sites of lip, oral cavity, and pharynx Status: Acute Assessment and Plan: Patient states that he did have surgical intervention for this. He knows he had an incision on his Lt. neck which was probably a modified radical left neck dissection with removal of nodes. He may have also had removal of the tonsil within his throat. He denies any problems swallowing at this time. He did note that he refused chemotherapy and radiation after his surgery although it was recommended. (4) Thrombocytopenia: Onset Date: Unknown Code(s): D69.6 - Thrombocytopenia, unspecified Status: Acute Assessment and Plan: Platelet count on 05/27/2020 is adequate for doing a core biopsy with platelet level of 105,000. Will repeat CBC in a.m. on 05/29 since has not been done for 2 days. (5) Fracture of thoracic vertebra, closed: Code(s): S22.009A - Unspecified fracture of unspecified thoracic vertebra, initial encounter for closed fracture Status: Acute Assessment and Plan: This may be a pathologic fracture. Will await results of possible biopsy if indicated of this abnormality in the area of the left supraclavicular region. 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 He had surgery for it in late 2019. He did not complete radiation or chemotherapy after the surgery. (7) Alcoholism: Code(s): F10.20 - Alcohol dependence, uncomplicated Status: Chronic Assessment and Plan: Patient is on standard protocol to for observation of this while hospitalized and not using alcohol. Subjective Subjective Date/Time Seen: 05/28/20 15:52 patient laying in bed trying to sleep and I came in the room. He would barely wake up and only mumbles when he spoke to me. Review of Systems Constitutional: Constitutional: Reports
[2020-05-29] VITALS (9 sets, daily range): BP systolic 115–152; BP diastolic 82–90; PULSE 72–85; RESP 16–18; TEMP 36.3–36.9; O2SAT 97–100
[2020-05-29] MEDS: chlordiazePOXIDE (*CRX) 25 MG CAPSULE 50 MG PO ×2 (00:24→06:26)
[2020-05-29 05:48] LABS: Basophils Absolute Auto 0.1 K/mm3 (0.0-0.1); Basophils Percent Auto 1.1 % (0.2-1.2); Eosinophils Absolute Auto 0.2 K/mm3 (0-0.3); Eosinophils Percent Auto 3.6 % (0-4.4); Hematocrit 42.1 % (42.0-52.0); Hemoglobin 14.6 g/dL (14.0-18.0); Immature Granulocyte Absolute 0.03 K/mm3 (0.00-0.031); Immature Granulocyte Percent A 0.5 % (0-0.5); Immature Platelet Fraction Pct 5.5 % (0.9-11.2); Lymphocytes Absolute Auto 1.22 K/mm3 (0.9-3.2); Lymphocytes Percent Auto 22.2 % (18.3-44.2); Mean Corpuscular HGB Conc 34.7 g/dl (32-36); Mean Corpuscular Volume 95.2 fl (80-100); Mean Platelet Volume 10.9 fl (7.4-10.4); Monocytes Absolute Auto 0.8 K/mm3 (0.1-0.6); Neutrophils Absolute Auto 3.2 K/mm3 (1.3-6.7); Neutrophils Percent Auto 58.6 % (45.5-73.1); Platelet Count Result 109 k/mm3 (150-375); Red Blood Count 4.42 M/mm3 (4.6-6.20); Red Cell Distribution Width 11.8 % (11.5-14.5); White Blood Count 5.5 K/mm3 (4.5-10.0)
--- NOTE | 2020-05-29 07:58 | PDONCCN ---
HPI - Date of Consult Date/Time: 05/29/20 07:58 Requesting Physician: Kiki Castro MD Primary Care Provider: Marisol Do, - Consult Narrative Reason for consult: History of tonsillar cancer now possible relapse Narrative: Zachery Cameron is a 59 year old male with history of tonsillar cancer status post tonsillectomy along with history of alcoholism. He presented to the ER for generalized weakness. He was recently admitted to the hospital and discharged day before after being admitted for syncopal episode. Patient never found him minimally responsive. EMS was called. CT chest showed left supraclavicular mass. There was also T5 burst fracture consistent with metastatic disease. There was also a possible mass in the tail of the pancreas. Patient is quite sleepy at this time and will not be able to provide much history. He told me that he is going to have neck mass biopsy today. Review of Systems - Review of Systems All systems reviewed & are unremarkable except as noted in HPI and bel - Neurologic Reports hearing normal, Denies headache(s), Denies focal weakness, Denies loss of vision, Denies memory loss, Denies numbness [facility] Medical History: Medical History (Last Updated 05/26/20 @ 22:08 by Nela Underwood PA-C) Alcoholism Epidural hematoma Onset Date: ~05/05/20 Transferred to [facility] from our emergency department, managed conservatively. Patient started on Keppra for seizure prophylaxis. 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 Was supposed to get chemo and radiation therapy but the patient did not follow-up. Patient of Dr. Cristi Solano at [facility]. Surgical History: Surgical History (Last Reviewed 05/26/20 @ 22:01 by Nela Underwood PA-C) History of tonsillectomy Family History: Family History (Last Reviewed 05/26/20 @ 22:01 by Nela Underwood PA-C) Mother Hypertension Father Hypertension - Social History Social History: Social History (Last Updated 05/26/20 @ 22:02 by Nela Underwood PA-C) Alcohol Use: Alcohol intake: current Drinks per week: 84 Substance Use: Substance use: current Substance use type: marijuana Last use: unsure Others: Spiritual care concerns: No Smoking Status: Smoking status: Current every day smoker Second hand tobacco smoke exposure: Yes Smoking Pack-years: Smoking packs per day: 0.5 Smoking cigarettes per day: 10.0 Meds Home Medications Medication Instructions Recorded Confirmed Type ergocalciferol (vitamin D2) 50,000 unit PO WEEKLY 05/23/20 05/26/20 History folic acid 1 mg PO DAILY 05/23/20 05/26/20 History magnesium oxide 400 mg PO QAM #30 tablet 05/25/20 05/26/20 Rx pantoprazole [Protonix] 20 mg PO QAM #30 tablet 05/25/20 05/26/20 Rx thiamine HCl (vitamin B1) [Vitamin 100 mg PO QAM #30 tablet 05/25/20 05/26/20 Rx B-1] Allergies Allergy/AdvReac Type Severity Reaction Status Date / Time No Known Allergies Allergy Unverified 02/24/12 13:29 Results - Labs CBC & Chem 7: 05/29/20 05:11 05/27/20 05:15 Labs: Short CBC 05/29/20 Range/Units 05:11 WBC 5.5 (4.5-10.0) K/mm3 Hgb 14.6 (14.0-18.0) g/dL Hct 42.1 (42.0-52.0) % Plt Count 109 L (150-375) k/mm3 Assessment and Plan - Additional Plan History of tonsillar cancer. Now there is a concern of possible relapse. Patient is a 59-year-old male with history of alcoholism. He was found to be minimally responsive and was experiencing generalized weakness when he was brought into the hospital. CT brain was performed that showed no change in appearance to moderate-sized left-sided extra-axial hematoma. Chest CTA showed T5 burst fracture. Left supraclavicular mass 2.9 x 1.9 cm and T5 lytic lesion. 2.5 cm mass at the tail of t
[2020-05-29] MEDS: THERAPEUTIC MULTIVITAMINS/MINERALS TAB (*BKC) 1 TABLET PO (10:06)
[2020-05-29] MEDS: THIAMINE HCL 100 MG TABLET PO (10:06)
[2020-05-29] MEDS: FOLIC ACID 1 MG TABLET PO (10:07)
[2020-05-29] MEDS: PANTOPRAZOLE SOD SESQUIHYDRATE 20 MG TAB PO (10:07)
[2020-05-29] MEDS: MAGNESIUM OXIDE 400 MG TABLET PO (10:07)
--- NOTE | 2020-05-29 16:07 | PM.IMPN ---
Progress Note: A&P Assessment and Plan (1) Supraclavicular lymphadenopathy: Onset Date: Unknown Code(s): R59.0 - Localized enlarged lymph nodes Status: Acute Assessment and Plan: Planning for core biopsy Appreciate surgery note (2) Metastatic neoplastic disease: Code(s): C79.9 - Secondary malignant neoplasm of unspecified site Status: Acute Assessment and Plan: Likely recurrence of head and neck cancer Will follow in the outpatient setting with Dr. Ketan Paiz Heme-Onc note (3) Thrombocytopenia: Onset Date: Unknown Code(s): D69.6 - Thrombocytopenia, unspecified Status: Acute Assessment and Plan: Repeating blood count today Last lab platelet count adequate for proceeding with biopsy (4) Generalized weakness: Code(s): R53.1 - Weakness Status: Acute Assessment and Plan: Likely secondary to long-standing alcohol intake as well as disease PT OT (5) Weakness: Code(s): R53.1 - Weakness Status: Acute Assessment and Plan: As above paraneoplastic syndrome? (6) Subdural hematoma: Code(s): S06.5X9A - Traumatic subdural hemorrhage with loss of consciousness of unspecified duration, initial encounter Status: Acute Assessment and Plan: On repeat CT shows to be stable (7) Tobacco abuse: Code(s): Z72.0 - Tobacco use Status: Chronic Assessment and Plan: Patient used to be tobacco user (8) Alteration consciousness: Code(s): R40.4 - Transient alteration of awareness Status: Acute Assessment and Plan: Will hold Librium Continue to monitor Supportive care Subjective Date/time seen: 05/29/20 16:07 I feel fine Review of Systems Review of Systems: Narrative: Patient does not give much history his seems to be sleepy Exam Narrative: Exam Narrative: Patient is drowsy Const: General: well developed, ill appearing chronically and other (Drowsy) Nutritional Appearance: thin Orientation/consciousness: patient oriented x3 HENMT: Head: normal to inspection, normocephalic and atraumatic Ears: hearing grossly normal bilaterally Face and sinus: normal facial exam Eyes: General: appearance normal, both eyes and all related structures Pupils: Equal, round and reactive pupils present EOM: EOMs intact bilaterally Neck: Neck: lymphadenopathy (Left side) supraclavicular and no JVD Resp: Effort & Inspection: normal respiratory effort and able to speak in complete sentences Auscultation: clear to auscultation bilaterally Cardio: Jugular venous distension: no JVD Rate: regular rate Rhythm: regular rhythm Heart sounds: S1 normal heart sound present and S2 normal heart sound present GI: GI Palp: Yes Soft to palpation and Yes No hepatosplenomegaly present : General: Yes deferred Skin: Rashes: no rashes Wounds: no wounds Neuro: General: patient oriented x3 and CN's II-XI intact bilaterally Cranial nerves: Yes CN's II-XII intact bilaterally and Yes Equal, round and reactive pupils present Cognition (Neuro): abnormal cognition (Drowsy) Speech: normal speech Gait exam (Neuro): Normal gait present Motor exam (neuro): 5/5 motor strength present throughout Extrem: General: normal to inspection, full ROM, no joint enlargement and no pedal edema Objective Data Vital Signs Vital Signs: Vital Signs - 24 hr 05/28/20 20:00 05/28/20 21:00 05/28/20 22:18 Temperature 98.4 F Pulse Rate 75 77 Respiratory Rate 18 Blood Pressure 148/89 H Pulse Oximetry 100 99 05/29/20 00:00 05/29/20 04:00 05/29/20 05:41 Temperature 97.4 F L Pulse Rate 75 85 76 Respiratory Rate 16 Blood Pressure 152/82 H Pulse Oximetry 99 05/29/20 08:00 05/29/20 12:00 05/29/20 14:00 Temperature 98.0 F Pulse Rate 72 79 77 Respiratory Rate 16 Blood Pressure 148/90 H Pulse Oximetry 100 05/29/20 16:00 Temperature Pulse Rate 75 Respiratory Rate Blood Pre
[2020-05-29 17:03] LABS: Basophils Percent Auto 0.7 % (0.2-1.2); Eosinophils Absolute Auto 0.1 K/mm3 (0-0.3); Eosinophils Percent Auto 2.1 % (0-4.4); Hemoglobin 15.2 g/dL (14.0-18.0); Immature Granulocyte Absolute 0.02 K/mm3 (0.00-0.031); Immature Granulocyte Percent A 0.3 % (0-0.5); Immature Platelet Fraction Pct 6.5 % (0.9-11.2); Lymphocytes Absolute Auto 1.06 K/mm3 (0.9-3.2); Lymphocytes Percent Auto 17.4 % (18.3-44.2); Mean Corpuscular HGB Conc 34.5 g/dl (32-36); Mean Corpuscular Hemoglobin 32.9 pg (26-34); Mean Corpuscular Volume 95.2 fl (80-100); Mean Platelet Volume 10.3 fl (7.4-10.4); Monocytes Absolute Auto 0.8 K/mm3 (0.1-0.6); Monocytes Percent Auto 12.5 % (2.6-8.5); Neutrophils Absolute Auto 4.1 K/mm3 (1.3-6.7); Platelet Count Result 115 k/mm3 (150-375); Red Blood Count 4.62 M/mm3 (4.6-6.20); Red Cell Distribution Width 11.8 % (11.5-14.5); White Blood Count 6.1 K/mm3 (4.5-10.0)
[2020-05-29 17:54] LABS: Anion Gap 4 mmol/L (8-16); Blood Urea Nitrogen 7 mg/dL (9-20); Calcium 9.3 mg/dL (8.4-10.2); Carbon Dioxide 32 mmol/L (22-30); Chloride 100 mmol/L (98-107); Estimated CRCL calculation 79 ml/min; Estimated Glomerular Filt Rate > 60; Glucose 102 mg/dL (75-110); Potassium 3.9 mmol/L (3.4-5.0); Sodium 136 mmol/L (137-145)
[2020-05-30] VITALS (10 sets, daily range): BP systolic 136–149; BP diastolic 77–86; PULSE 76–87; RESP 14–28; TEMP 36.1–36.8; O2SAT 97–100
[2020-05-30] MEDS: chlordiazePOXIDE (*CRX) 25 MG CAPSULE 50 MG PO ×4 (05:14→23:20)
[2020-05-30] MEDS: THERAPEUTIC MULTIVITAMINS/MINERALS TAB (*BKC) 1 TABLET PO (09:04)
[2020-05-30] MEDS: THIAMINE HCL 100 MG TABLET PO (09:04)
[2020-05-30] MEDS: PANTOPRAZOLE SOD SESQUIHYDRATE 20 MG TAB PO (09:04)
[2020-05-30] MEDS: FOLIC ACID 1 MG TABLET PO (09:04)
[2020-05-30] MEDS: MAGNESIUM OXIDE 400 MG TABLET PO (09:04)
--- NOTE | 2020-05-30 12:02 | PM.IMPN ---
Progress Note: A&P Assessment and Plan (1) Supraclavicular lymphadenopathy: Onset Date: Unknown Code(s): R59.0 - Localized enlarged lymph nodes Status: Acute Assessment and Plan: Planning for core biopsy, pt considering hospice services. (2) Metastatic neoplastic disease: Code(s): C79.9 - Secondary malignant neoplasm of unspecified site Status: Acute Assessment and Plan: Likely recurrence of head and neck cancer- pt sees Dr. Aceves Oncology rounding here (3) Thrombocytopenia: Onset Date: Unknown Code(s): D69.6 - Thrombocytopenia, unspecified Status: Acute Assessment and Plan: plts are 115 today (4) Generalized weakness: Code(s): R53.1 - Weakness Status: Acute Assessment and Plan: Likely secondary to long-standing alcohol intake as well as disease PT OT (5) Subdural hematoma: Code(s): S06.5X9A - Traumatic subdural hemorrhage with loss of consciousness of unspecified duration, initial encounter Status: Acute Assessment and Plan: On repeat CT shows to be stable (6) Tobacco abuse: Code(s): Z72.0 - Tobacco use Status: Chronic Assessment and Plan: Patient used tobacco (7) Alteration consciousness: Code(s): R40.4 - Transient alteration of awareness Status: Acute Assessment and Plan: wean down Librium pt appears drowsy Subjective Date/time seen: 05/30/20 12:02 Interval history: 59-year-old male with longstanding history of alcoholism, tonsillar cancer status post tonsillectomy, and falls with history of epidural hematoma several weeks ago which was stable on brain CT today who presented to the emergency department earlier this morning via EMS from home for evaluation of generalized weakness. Pt found to have a supraclavicular lymph nodes. Possible pancreatic mass noted on CT: Consider MRI of the abdomen with and without contrast depending on lymph node pathology. T5 pathologic burst fracture also noted. Plan for pt to have biopsy today. Pt considering hospice services. Review of Systems Review of Systems: All systems reviewed & are unremarkable except as noted in HPI and below Exam Narrative: Exam Narrative: Patient is drowsy Const: General: ill appearing and other (Drowsy) Nutritional Appearance: thin Orientation/consciousness: patient oriented x3 HENMT: Head: normal to inspection and normocephalic Neck: Neck: lymphadenopathy (Left side) and no JVD Thyroid: thyroid normal Lymphatic: no lymphadenopathy noted, no lymphedema noted and lymphadenopathy Resp: Effort & Inspection: normal respiratory effort and able to speak in complete sentences Auscultation: clear to auscultation bilaterally Cardio: Jugular venous distension: no JVD Rate: regular rate Rhythm: regular rhythm Heart sounds: S1 normal heart sound present and S2 normal heart sound present : General: Yes deferred Skin: Rashes: no rashes Wounds: no wounds Neuro: General: patient oriented x3 and CN's II-XI intact bilaterally Cranial nerves: Yes CN's II-XII intact bilaterally and Yes Equal, round and reactive pupils present Cognition (Neuro): abnormal cognition (Drowsy) Speech: normal speech Gait exam (Neuro): Normal gait present Motor exam (neuro): 5/5 motor strength present throughout Extrem: General: normal to inspection, full ROM, no joint enlargement and no pedal edema Objective Data Vital Signs Vital Signs: Vital Signs - 24 hr 05/29/20 14:00 05/29/20 16:00 05/29/20 20:00 Temperature 36.7 C Pulse Rate 77 75 83 Respiratory Rate 16 Blood Pressure 148/90 H Pulse Oximetry 100 05/29/20 20:15 05/30/20 00:00 05/30/20 04:00 Temperature 36.9 C Pulse Rate 80 87 80 Respiratory Rate 18 Blood Pressure 115/86 Pulse Oximetry 97 05/30/20 05:15 05/30/20 08:00 05/30/20 08:40 Temperature 36.8 C 36.2 C L Pulse Rate 78 79 81 Respiratory Rate 18 24 H Blood Pressure
--- NOTE | 2020-05-30 13:22 | P.PNONC_ITS ---
Progress Note: A/P - Additional Plan Likely recurrent tonsillar cancer. Patient was diagnosed with tonsillar cancer 3 years ago and had surgery done. According to patient he did not receive radiation therapy and chemotherapy. Patient is not status post left supraclavicular mass biopsy and pathology is pending. Patient has been provided with my office information for follow-up. - Time Spent With Patient Total time spent is greater than 50% in coordination of care (as documented) at patient's floor/unit and/or counseling patient: 15 - 25 minutes Subjective Interval history: Recurrent head and neck cancer Review of Systems - Review of Systems Patient is much more awake and alert today. Complaining of some neck discomfort. No chest pain and shortness of breath. He is eating his lunch comfortably. - Neurologic Reports hearing normal, Denies headache(s), Denies focal weakness, Denies loss of vision, Denies memory loss, Denies numbness Exam Vital signs: Temp Pulse Resp BP Pulse Ox 36.2 C L 81 22 H 139/86 97 05/30/20 09:03 05/30/20 12:00 05/30/20 11:09 05/30/20 09:03 05/30/20 11:09 Narrative: Lungs are clear to auscultation bilaterally Cardiovascular regular rate rhythm no murmurs Abdomen soft nontender nondistended bowel sounds Are positive extremities no edema PN: Objective Data - Labs CBC & Chem 7: 05/29/20 16:22 05/29/20 17:27 Labs: Laboratory Results - last 24 hr 05/29/20 05/29/20 16:22 17:27 WBC 6.1 RBC 4.62 Hgb 15.2 Hct 44.0 MCV 95.2 MCH 32.9 MCHC 34.5 RDW 11.8 Plt Count 115 L MPV 10.3 Immature Gran % (Auto) 0.3 Neut % (Auto) 67.0 Lymph % (Auto) 17.4 L [place] % (Auto) 12.5 H Eos % (Auto) 2.1 Baso % (Auto) 0.7 Lymph # (Auto) 1.06 [place] # (Auto) 0.8 H Eos # (Auto) 0.1 Baso # (Auto) 0.0 Abs Immat Gran (auto) 0.02 Absolute Neuts (auto) 4.1 Absolute Nucleated RBC 0.0 Nucleated RBC % 0.0 % Immature Plt Fraction 6.5 Sodium 136 L Potassium 3.9 Chloride 100 Carbon Dioxide 32 H Anion Gap 4 L BUN 7 L D Creatinine 0.80 Estim Creat Clear Calc 79 Estimated GFR > 60 Glucose 102 Calcium 9.3
--- NOTE | 2020-05-30 13:45 | PM.PNGS ---
Progress Note: A&P Assessment and Plan (1) Supraclavicular lymphadenopathy: Onset Date: Unknown Code(s): R59.0 - Localized enlarged lymph nodes Status: Acute Assessment and Plan: US-guided core biopsy of the supraclavicular mass was successful yesterday. Radiologist was able to get 3 core samples. We will sign off of the case at this time. He should follow-up with Oncology regarding pathology and further plan. Please let us know if any surgical needs are needed in the future. Thank you. 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 Paniagua. Subjective Subjective Date/Time Seen: 05/30/20 13:45 Patient reports: no new complaints Interval history: No acute issues. Exam Const: General: no acute distress and alert Orientation/consciousness: patient oriented x3 Neck: Neck: lymphadenopathy ( supraclavicular near the clavicular head on the Lt.) Objective Data Vital Signs Vital Signs: Vital Signs - 24 hr 05/29/20 14:00 05/29/20 16:00 05/29/20 20:00 Temperature 98.0 F Pulse Rate 77 75 83 Respiratory Rate 16 Blood Pressure 148/90 H Pulse Oximetry 100 05/29/20 20:15 05/30/20 00:00 05/30/20 04:00 Temperature 98.4 F Pulse Rate 80 87 80 Respiratory Rate 18 Blood Pressure 115/86 Pulse Oximetry 97 05/30/20 05:15 05/30/20 08:00 05/30/20 08:40 Temperature 98.3 F 97.1 F L Pulse Rate 78 79 81 Respiratory Rate 18 24 H Blood Pressure 149/85 H 139/86 Pulse Oximetry 100 97 05/30/20 09:03 05/30/20 11:09 05/30/20 12:00 Temperature 97.1 F L Pulse Rate 81 81 Respiratory Rate 24 H 22 H Blood Pressure 139/86 Pulse Oximetry 97 97 Intake/Output Intake/Output: Intake & Output 05/27/20 05/28/20 05/29/2020/21 23:59 23:59 23:59 23:59 Intake Total 1710 1300 970 220 Output Total 675 300 625 Balance 1035 1000 345 220 Meds/Results Medications: Active Medications Generic Name Dose Route Start Last Admin Trade Name Freq PRN Reason Stop Dose Admin Acetaminophen 650 mg 05/26/20 21:48 Acetaminophen 325 Mg Tablet PO Q6H PRN Mild Pain (1-3) or Fever Hydrocodone Bitart/Acetaminophen 1 tab 05/26/20 21:48 05/28/20 08:27 Hydrocodone/Acetaminophen (*Crx) 5-325 Mg Tablet PO 1 tab Q6H PRN Administration Pain Rated 4-6 Chlordiazepoxide HCl 50 mg 05/27/20 00:00 05/30/20 11:50 Chlordiazepoxide (*Crx) 25 Mg Capsule PO 50 mg Q6HR ONEL Administration Ergocalciferol 50,000 unit 06/04/20 09:00 Ergocalciferol 50,000 Unit Capsule PO Schmidt@0900 [facility] Folic Acid 1 mg 05/27/20 09:00 05/30/20 09:04 Folic Acid 1 Mg Tablet PO 1 mg DAILY [facility] Administration Lorazepam 1 mg 05/26/20 22:12 Lorazepam Inj (*Crx) 2 Mg/Ml Vial IV PUSH Q1H PRN Anxiety Magnesium Oxide 400 mg 05/27/20 09:00 05/30/20 09:04 Magnesium Oxide 400 Mg Tablet PO 400 mg QAM [facility] Administration Multivitamins/Calcium 1 tablet 05/27/20 09:00 05/30/20 09:04 Therapeutic Multivitamins/Minerals Tab (*Bkc) [facility] [place] [place] Administration Nicotine 1 patch 05/26/20 22:20 05/30/20 09:05 Nicotine (*Pbkc) 14 Mg Patch TRANSDERM Not Given QAM [facility] Ondansetron HCl 4 mg 05/26/20 15:30 Ondansetron Inj 4 Mg/2 Ml Vial IV PUSH Q4H PRN Nausea Pantoprazole Sodium 20 mg 05/27/20 09:00 05/30/20 09:04 Pantoprazole Sod Sesquihydrate 20 Mg Tab PO 20 mg QAM [facility] Administration Thiamine HCl 100 mg 05/27/20 09:00 05/30/20 09:04 Thiamine Hcl 100 Mg Tablet PO 100 mg QAM ONEL Administration Radiology Results: ITS Impressions Chest X-Ray 05/26/20 08:42 IMPRESSION: 1.
--- NOTE | 2020-05-30 15:00 | PC.NURSE ---
On 05/30/20, the student, [JUSTYNA BAIRD], provided care and completed [facility] documentation on this patient. I have reviewed the student's documentation and agree with the findings.
--- NOTE | 2020-05-30 15:01 | PC.NURSE ---
On 05/30/20, the student, [FRANKIE BRADLEY], provided care and completed [facility] documentation on this patient. I have reviewed the student's documentation and agree with the findings.
--- NOTE | 2020-05-30 16:10 | PCSTNOTE ---
Please refer to the Bedside Swallow Evaluation in the EMR. Please note, silent aspiration cannot be ruled out at bedside.
[2020-05-30 23:43] LABS: SARS-CoV-2 RNA PCR Negative
[2020-05-31] MEDS: chlordiazePOXIDE (*CRX) 25 MG CAPSULE 50 MG PO (05:44)
[2020-05-31 05:51] LABS: Hematocrit 44.8 % (42.0-52.0); Hemoglobin 15.6 g/dL (14.0-18.0); Mean Corpuscular HGB Conc 34.8 g/dl (32-36); Mean Corpuscular Hemoglobin 33.3 pg (26-34); Mean Corpuscular Volume 95.5 fl (80-100); Mean Platelet Volume 10.2 fl (7.4-10.4); Platelet Count Result 136 k/mm3 (150-375); Red Blood Count 4.69 M/mm3 (4.6-6.20); Red Cell Distribution Width 11.9 % (11.5-14.5); White Blood Count 7.1 K/mm3 (4.5-10.0)
[2020-05-31 05:56] LABS: Anion Gap 6 mmol/L (8-16); Blood Urea Nitrogen 12 mg/dL (9-20); Calcium 9.1 mg/dL (8.4-10.2); Carbon Dioxide 30 mmol/L (22-30); Chloride 101 mmol/L (98-107); Estimated CRCL calculation 89 ml/min; Estimated Glomerular Filt Rate > 60; Glucose 104 mg/dL (75-110); Potassium 3.9 mmol/L (3.4-5.0); Sodium 137 mmol/L (137-145)
[2020-05-31 06:00] VITALS: BP 133/82; PULSE 80; RESP 16; TEMP 36.5; O2SAT 97
[2020-05-31] MEDS: THIAMINE HCL 100 MG TABLET PO (08:39)
[2020-05-31] MEDS: MAGNESIUM OXIDE 400 MG TABLET PO (08:39)
[2020-05-31] MEDS: PANTOPRAZOLE SOD SESQUIHYDRATE 20 MG TAB PO (08:39)
[2020-05-31] MEDS: THERAPEUTIC MULTIVITAMINS/MINERALS TAB (*BKC) 1 TABLET PO (08:39)
[2020-05-31] MEDS: FOLIC ACID 1 MG TABLET PO (08:39)
--- NOTE | 2020-05-31 10:22 | PM.DS ---
DS: Admitting Diagnosis Admitting Diagnosis Admitting Diagnosis: GENERALIZED WEAKNESS DS: Discharge Diagnosis Discharge Diagnosis (1) Supraclavicular lymphadenopathy: Onset Date: Unknown Code(s): R59.0 - Localized enlarged lymph nodes Status: Acute Assessment and Plan: Pt is sp core biopsy, results are not back, pt is discharging to hospice care at [facility]. (2) Metastatic neoplastic disease: Code(s): C79.9 - Secondary malignant neoplasm of unspecified site Status: Acute Assessment and Plan: Likely recurrence of head and neck cancer- pt sees Dr. Lagunas Oncology rounding here, Pt states he does not want any more radiation or chemotheraphy, opting for hospice. Pt found to have a supraclavicular lymph nodes. Possible pancreatic mass noted on CT: Consider MRI of the abdomen with and without contrast depending on lymph node pathology. T5 pathologic burst fracture also noted. Pt went for core biopsy. Discussion with sister prior to discharging pt. She would like a follow up apt with DR Chantale magallanes pt changes his mind and wants active treatments later. Pt will need results of biopsy and MRI abdomen if he wants at that time. (3) Thrombocytopenia: Onset Date: Unknown Code(s): D69.6 - Thrombocytopenia, unspecified Status: Acute Assessment and Plan: Plts are 136 today (4) Generalized weakness: Code(s): R53.1 - Weakness Status: Acute Assessment and Plan: Likely secondary to long-standing alcohol intake as well as disease PT OT pt needs to wean off librium and stop (5) Subdural hematoma: Code(s): S06.5X9A - Traumatic subdural hemorrhage with loss of consciousness of unspecified duration, initial encounter Status: Acute Assessment and Plan: On repeat CT shows to be stable (6) Tobacco abuse: Code(s): Z72.0 - Tobacco use Status: Chronic Assessment and Plan: Patient used tobacco Pt strongly advised to quit smoking discharged with nictone patch. (7) Alteration consciousness: Code(s): R40.4 - Transient alteration of awareness Status: Acute Assessment and Plan: wean down Librium pt appears drowsy, continue to wean off and stop DS: Summary Hospital Course Hospital Course: 59-year-old male with longstanding history of alcoholism, tonsillar cancer status post tonsillectomy, and falls with history of epidural hematoma several weeks ago which was stable on brain CT today who presented to the emergency department earlier this morning via EMS from home for evaluation of generalized weakness. Pt found to have a supraclavicular lymph nodes. Possible pancreatic mass noted on CT: Consider MRI of the abdomen with and without contrast depending on lymph node pathology. T5 pathologic burst fracture also noted. Pt had core biopsy in the hospital and is requesting to go to hospice services. Time Spent with Patient Time attestation: Total time spent providing and/or coordinating discharge services:40 minutes on day of discharge Exam Narrative: Exam Narrative: Patient is drowsy Const: General: ill appearing chronically and other (Drowsy) Nutritional Appearance: thin Orientation/consciousness: patient oriented x3 HENMT: Head: normal to inspection and normocephalic Ears: hearing grossly normal bilaterally Face and sinus: normal facial exam Eyes: General: appearance normal, both eyes and all related structures Pupils: Equal, round and reactive pupils present EOM: EOMs intact bilaterally Neck: Neck: other (sp biopsy on left supraclavicular area) Thyroid: thyroid normal Lymphatic: no lymphadenopathy noted, no lymphedema noted and lymphadenopathy Resp: Effort & Inspection: normal respiratory effort and able to speak in complete sentences Auscultation: clear to auscultation bilaterally Cardio: Jugular venous distension: no JVD Rate: regular rate Rhythm: regular rhythm Heart sounds:
[2020-05-31 14:00] VITALS: BP 145/90; PULSE 78; RESP 18; TEMP 36.9; O2SAT 95
[2020-06-01 06:01] LABS: CA 19-9 5 U/mL (<34)
== END 2020-05-31 16:50 | disposition hospice, inpatient (51) | DRG 694 ==
LOC: ANHED 08:15 → ANH2MED 16:03
PROVIDERS: Internal Medicine Hematology & Oncology; Physician Assistant; Surgery; Admitting Provider Internal Medicine; Emergency Provider General Practice; PCP Family Medicine; Visit Provider Family Medicine
DX: C77.0 Secondary and unspecified malignant neoplasm of lymph nodes of head, face and neck (principal); Z20.822 Contact with and (suspected) exposure to COVID-19; F10.20 Alcohol dependence, uncomplicated; F17.210 Nicotine dependence, cigarettes, uncomplicated; Z66 Do not resuscitate; M84.48XA Pathological fracture, other site, initial encounter for fracture; K86.9 Disease of pancreas, unspecified; R40.4 Transient alteration of awareness; D69.59 Other secondary thrombocytopenia; S06.4X9D Epidural hemorrhage with loss of consciousness of unspecified duration, subsequent encounter; W19.XXXD Unspecified fall, subsequent encounter; Z85.818 Personal history of malignant neoplasm of other sites of lip, oral cavity, and pharynx
CPT/HCPCS: 20206; 36415; 36600; 70450; 70491; 71045; 71275; 76942; 80048; 80053; 80307; 81001; 82375; 82550; 82607; 82746; 82805; 82948; 83050; 83605; 83690; 83735; 84100; 84443; 84484; 85025; 85027; 85055; 85610; 85730; 86301; 87086; 87088; 88305; 88342; 92610; 93005; 96361; 96374; 99285; A9270; C9803; G0378; G0379; J3411; J7030; Q9967; U0003; U0005